=== PATIENT | female | born 1970 | race Two or more races ===

== ENCOUNTER 2016-09-25 16:30 | Emergency (ER) | payer MEDICAID ==
[2016-09-25 16:42] VITALS: PULSE 88; TEMP 98.4
[2016-09-25] MEDS ORDERED: NS 1,000 ML IV ONE (17:00)
[2016-09-25] MEDS ORDERED: HYDROmorphONE/DILAUDID 1 MG/ML SYR IVP ONE ×2 (17:00→17:50)
[2016-09-25] MEDS ORDERED: ONDANSETRON 4 MG/2 ML VIAL IVP ONE (17:00)
--- NOTE | 2016-09-25 17:00 | EDPHY ---
H & P Stated Complaint: abd pain Source: Patient Exam Limitations: No limitations - Personal History LMP (Females 10-55): Irregular Current Tetanus/Diphtheria Vaccine: Yes Current Tetanus Diphtheria and Acellular Pertussis (TDAP): Yes Tetanus Vaccine Date: 2007 - Medical/Surgical History Hx Asthma: Yes Hx Chronic Respiratory Disease: Yes Hx Diabetes: Yes Hx Cardiac Disease: No Hx Renal Disease: No Hx Cirrhosis: No Hx Alcoholism: No Hx HIV/AIDS: No Hx Splenectomy or Spleen Trauma: Yes Other PMH: asthma, COPD, Splenectomy, appy, cholecystectomy,c section, DVTs, PEs , NIDDM, "bladder, uterus, rectum lifted", diabetes, fibromyalgia, rheumatoid arthritis - Family History Significant Family History: No pertinent family hx - Social History Smoking Status: Current some day smoker Time Seen by Provider: 09/25/16 16:50 HPI/ROS: CHIEF COMPLAINT: abdominal pain, nausea, vomiting and diarrhea HISTORY OF PRESENT ILLNESS: 45-year-old female who is an insulin-dependent diabetic presents emergency department complaining of 4 days abdominal pain, nausea, vomiting and diarrhea. Patient states that she was seen by a doctor at [facility] who told her to come to the emergency department to make sure her pancreas was okay. Patient stays at the [facility], she reports she has been eating pasta every day for the last 7 days which upsets her stomach. Abdominal pain is worse after eating. She reports it is worse in her epigastric area and diffusely through her entire abdomen. She denies urinary urgency, frequency or dysuria. Pain is intermittent. Patient denies alcohol use, no drug use. She denies blood in her stool or vomit. REVIEW OF SYSTEMS: A comprehensive 10 point review of systems is otherwise negative aside from elements mentioned in the history of present illness. (Francisca Vu) - Physical Exam Exam: Physical Exam Gen: Alert and Oriented, grimacing HEENT: PERRL, moist mucous membranes NECK: no meningismus CV: regular rate and regular rhythm PULM: CTAB, no wheezes ABDOMEN: Obese, soft, diffusely tender to palpation, BS present BACK: No CVA tenderness NEURO: Neurologically grossly intact EXTREMITIES: normal appearing SKIN: no rash or break in skin on exposed skin PSYCH: answers questions appropriately. (Francisca Vu) Constitutional: Initial Vital Signs Temperature (C) 36.9 C 09/25/16 16:37 Heart Rate 88 09/25/16 16:37 Respiratory Rate 16 09/25/16 16:37 Blood Pressure 118/70 09/25/16 16:37 O2 Sat (%) 98 09/25/16 16:37 O2 Delivery Mode Room Air O2 (L/minute) 4 Allergies/Adverse Reactions: aspirin Allergy (Verified 09/25/16 16:35) azithromycin [From Zithromax] Allergy (Verified 09/25/16 16:35) cephalexin monohydrate [From Keflex] Allergy (Verified 09/25/16 16:35) clindamycin Allergy (Verified 09/25/16 16:35) metformin Allergy (Verified 09/25/16 16:35) NSAIDS (Non-Steroidal Anti-Inflamma Allergy (Verified 09/25/16 16:35) tramadol Allergy (Verified 09/25/16 16:35) all cillins Allergy (Uncoded 10/31/15 07:42) MONOHYDRATE Allergy (Uncoded 02/15/16 12:44) Home Medications: Medication Instructions Recorded Insulin Detemir [Levemir] 50 unit SQ DAILY 08/14/15 Potassium Cl [Klor-Con 20 meq (*)] 40 meq PO BID 08/14/15 tiZANidine HCL [Zanaflex 2MG (*)] 4 mg PO BID 08/14/15 Albuterol [Proventil Inhaler HFA 1 - 2 puffs IH DAILY PRN 11/22/15 (*)] Warfarin Sodium [Coumadin 5MG (*)] 5 mg PO SUMOTUWETHSA@16 11/22/15 Ergocalciferol [Vitamin D2 (*)] 50,000 unit PO ISBELL@0900 12/19/15 Folic Acid [Folic Acid 1 MG (*)] 1 mg PO HS 12/19/15 Warfarin Sodium [Coumadin 7.5MG 7.5 mg PO FR@16 12/19/15 (*)] Insulin Detemir [Levemir] 35 - 50 unit SQ DAILY@18 02/15/16 Promethazine HCl [Phenergan 25mg 25 - 50 mg PO Q4-6PRN PRN 02/15/16 (*)] glipiZIDE [Glipizide] 10 mg PO BIDAC 04/01/16 Sennosides/Docusate Sodium 1 - 2 tab PO BID #0 tab 04/03/16 [Senokot-S] Furosemide [Lasix 40 MG (*)] 40 mg PO BID 04/06/16 Lipase/Protease/Amylase [Creon 12 1 cap PO TIDMEAL #0 cap 04/07/16 (*)] Lisinopril [Zestril 5 mg (*)] 5 mg PO HS #30 tab 04/07/16 Hydrocodone/APAP 5/325 [[place] 1 - 2 tab PO Q4H PRN #10 tab 07/29/16 5/325] Sulfamethox/Tmp 800/160 mg 1 tab PO BID@1000,2200 #14 tab 07/29/16 [Bactrim Ds] methylPREDNISolone [Medrol Dose 4 mg PO DAILY #1 ea 08/03/16 Dash] oxyCODONE/APAP 5/325 [Percocet 1 tab PO QID PRN #14 tab 08/03/16 5/325 (*)] Ondansetron Odt [Zofran Odt] 4 mg PO Q4PRN PRN #20 tab 08/12/16 Ondansetron Odt [Zofran Odt] 4 mg PO Q6-8PRN PRN #8 tab 09/25/16 Medical Decision Making - Diagnostics Imaging: CT abdomen pelvis with IV contrast- Impressions 1. Previous splenectomy, cholecystectomy, and appendectomy. 2. No bowel obstruction, pneumoperitoneum, focal fluid collection, or acute diverticulitis. 3. Constipation. 4. No peripancreatic fluid or ductal dilation. 5. Atherosclerotic aorta, without aneurysm. Findings and recommendations discussed with Emergency Department physician, Francisca Vu, N.P., at 1750 hours, on September 25, 2016. Final report concurs with initial preliminary interpretation. E:amm Dictated By: Jonathan Hunter (Francisca Vu) ED Course/Re-evaluation: IV established, CBC, chemistry panel, LFTs, lipase, urinalysis obtained. Patient was given 1 mg of IV Dilaudid and 4 mg of Zofran for pain and nausea. CT abdomen pelvis has been ordered. Patient required another 0.5 mg of Dilaudid for her pain. Patient's blood work is unremarkable, normal lipase, normal LFTs. Patient is an insulin-dependent diabetic, she has no anion gap, bicarb is 29. She has no evidence of diabetic ketoacidosis. She has had no vomiting in the emergency department, CT abdomen pelvis is unremarkable aside for constipation. Patient will be discharged home with a diagnosis of a gastroenteritis in constipation, I have recommended clear liquids for the next 24 hours and then advance her diet slowly as tolerated with bland foods. I have recommended MiraLax daily. Patient is discharged home with a prescription for Zofran. She agrees to follow up at [facility] this week and is to return to the emergency department for worsening symptoms, new symptoms or concerns. (Francisca Vu) Differential Diagnosis: Diagnosis considered but not limited to diverticulitis, adhesions, bowel obstruction, gastroenteritis, diabetic ketoacidosis (Francisca Vu) Other Provider: The patient wasevaluatedand managed by themidlevel provider. My co- signature indicates that Marin reviewed this chart and I agree with the findings and plan of care asdocumented. I am the secondary supervising physician. (Desiree Luna) - Data Points Laboratory Results: Laboratory Results 09/25/16 16:52 09/25/16 16:52 Microbiology Results: MICROBIOLOGY 09/25/16 17:18 Urine,Clean Catch Urine Culture - Final Five Or More [place] Types Medications Given: Discontinued Medications Hydromorphone HCl (Dilaudid) 1 mg IVP EDNOW ONE Stop: 09/25/16 17:01 Last Admin: 09/25/16 17:15 Dose: 1 mg Hydromorphone HCl (Dilaudid) 0.5 mg IVP EDNOW ONE Stop: 09/25/16 17:51 Last Admin: 09/25/16 17:59 Dose: 0.5 mg Sodium Chloride (Ns) 1,000 mls @ 0 mls/hr IV ONCE ONE PRN Reason: Wide Open Stop: 09/25/16 17:01 Last Admin: 09/25/16 17:15 Dose: 1,000 mls Ondansetron HCl (Zofran) 4 mg IVP EDNOW ONE Stop: 09/25/16 17:01 Last Admin: 09/25/16 17:15 Dose: 4 mg Departure - Departure Disposition: Home, Routine, Self-Care Clinical Impression: Acute gastroenteritis, Constipation Condition: Good Instructions: Gastroenteritis (ED), Constipation (ED), High Fiber Diet (ED) Additional Instructions: Drink clear liquids only then advance her diet slowly as tolerated with bland foods. Start taking MiraLax daily for 7 days. Take Zofran as needed for nausea. Follow up at [facility] this week for re-evaluation. Return to the emergency department for worsening symptoms. Referrals: Mary Rosario MD [Primary Care Provider] - As per Instructions Prescriptions: Ondansetron Odt [Zofran Odt] 4 mg PO Q6-8PRN PRN #8 tab PRN Reason: Nausea/Vomiting, Can'T Take Po
[2016-09-25 17:08] LABS: COLOR YELLOW; LEUKOCYTE ESTERASE,URINE NEGATIVE (NEGATIVE); NITRITE,URINE NEGATIVE (NEGATIVE)
[2016-09-25 17:14] LABS: % IMMATURE GRANULYOCYTES 0.4 % (0.0-1.1); ABSOLUTE IMMATURE GRANULOCYTES 0.04 10^3/uL (0.00-0.10); ABSOLUTE NRBC COUNT 0.59 10^3/uL (0-0.01); ADD DIFF? NO; ADD MORPH? YES; ADD SCAN? NO; ATYPICAL LYMPHOCYTE FLAG 0 (0-99); FRAGMENT RBC FLAG 20 (0-99); HEMATOCRIT 31.5 % (38.0-47.0); HEMOGLOBIN 10.6 g/dL (12.6-16.3); LEFT SHIFT FLG 0 (0-99); LIPEMIA HEMOLYSIS FLAG 80 (0-99); MEAN CELL HEMOGLOBIN 23.5 pg (27.9-34.1); MEAN CELL HEMOGLOBIN CONCENTR. 33.7 g/dL (32.4-36.7); MEAN PLATELET VOLUME 10.1 fL (8.7-11.7); PLATELET CLUMPS FLAG 0 (0-99); PLATELET COUNT 437 10^3/uL (150-400); RED BLOOD CELL COUNT 4.51 10^6/uL (4.18-5.33); RED CELL DISTRIBUTION WIDTH 18.3 % (11.5-15.2)
[2016-09-25 17:17] LABS: MEAN CELL VOLUME 69.8 fL (81.5-99.8); NRBC-AUTO% 6.5 % (0.0-0.2)
[2016-09-25 17:17] LABS: BACTERIA 1+ /hpf (NONE SEEN)
[2016-09-25 17:18] LABS: WBC,URINE NONE SEEN /hpf (0-3)
[2016-09-25 17:22] LABS: ALANINE AMINOTRANSFERASE 32 IU/L (9-52); ALKALINE PHOSPHATASE 101 IU/L (38-126); ANION GAP 7 mEq/L (8-16); ASPARTATE AMINOTRANSFERASE 32 IU/L (14-46); BILIRUBIN,TOTAL 0.7 mg/dL (0.1-1.4); BILIRUBIN-CONJUGATED 0.5 mg/dL (0.0-0.5); BILIRUBIN-UNCONJUGATED 0.2 mg/dL (0.0-1.1); CARBON DIOXIDE 29 mEq/l (22-31); CHLORIDE 102 mEq/L (97-110); GLOMERULAR FILTRATION RATE > 60; GLUCOSE 144 mg/dL (70-100); POTASSIUM 4.4 mEq/L (3.5-5.2); SODIUM 138 mEq/L (134-144); TOTAL PROTEIN 7.4 g/dL (6.3-8.2)
[2016-09-25] MEDS ORDERED: IOPAMIDOL (ISOVUE-300) 100 ML BTL IV ONE (17:28)
[2016-09-25 17:54] LABS: MICROCYTES 2+; TARGET CELLS 3+
[2016-09-25 17:55] LABS: PLATELET ESTIMATE ADEQUATE (ADEQ)
--- NOTE | 2016-09-25 18:08 | CT ---
CT Scan of the Abdomen and Pelvis (With Contrast) at 1738 hours History: Left upper quadrant abdominal pain. Prior splenectomy, cholecystectomy, and appendectomy. Technique: Axial computed tomographic images of the abdomen and pelvis were obtained, with the uneve ntful intravenous administration of 93 mL Isovue-300 contrast. No oral or rectal contrast, which levy its the study. Dose reduction techniques were utilized. Comparison: CT March 2016. CT Abdomen Findings: Lung bases: No pleural effusion. Liver: Normal. Biliary system: Prior cholecystectomy, without biliary ductal dilation. Spleen: Prior splenectomy, with surgical clips left upper quadrant. No left upper quadrant fluid co llections or pneumoperitoneum. Pancreas: Normal. Adrenals: Normal. Kidneys: No obstruction or solid masses. Abdominal Aorta: Mild atherosclerotic abdominal aorta, without aneurysm. Moderate stool throughout the colon consistent with constipation. No evidence of diverticulitis, sma ll bowel obstruction, focal abscesses, focal fluid collection, or pneumoperitoneum. Mesenteric stran ding in the retroperitoneum, right upper quadrant, and right paracolic gutter. Less prominent on pre vious study but chronic. No focal inflammatory acute process or fluid collection noted. A few small retroperitoneal lymph nodes, stable since the previous study. CT Pelvis Findings: No diverticulitis. No adnexal masses. No significant adenopathy. Impressions 1. Previous splenectomy, cholecystectomy, and appendectomy. 2. No bowel obstruction, pneumoperitoneum, focal fluid collection, or acute diverticulitis. 3. Constipation. 4. No peripancreatic fluid or ductal dilation. 5. Atherosclerotic aorta, without aneurysm. Findings and recommendations discussed with Emergency Department physician, Letty Hayward.Elian., at 1 750 hours, on September 25, 2016. Final report concurs with initial preliminary interpretation. E:altaf
[2016-09-25 18:44] VITALS: BP 128/79; RESP 14; O2SAT 96
== END 2016-09-25 18:44 | disposition home or self-care (01) ==
DX: K52.9 Noninfective gastroenteritis and colitis, unspecified (principal); K59.00 Constipation, unspecified; J44.9 Chronic obstructive pulmonary disease, unspecified; E11.9 Type 2 diabetes mellitus without complications; F17.200 Nicotine dependence, unspecified, uncomplicated; Z90.49 Acquired absence of other specified parts of digestive tract; Z79.4 Long term (current) use of insulin; Z79.01 Long term (current) use of anticoagulants
CPT/HCPCS: 96374; J1170; J2405; Q9967

== ENCOUNTER 2016-10-22 15:27 | Emergency (ER) | payer MEDICAID ==
--- NOTE | 2016-10-22 15:55 | EDPHY ---
H & P Stated Complaint: sinus pain/pressure/eues burning Time Seen by Provider: 10/22/16 15:44 HPI/ROS: CHIEF COMPLAINT: cough, sore throat HISTORY OF PRESENT ILLNESS: The patient is a 45-year-old female who [facility] from the [facility] complaining of a cough that she thinks she got from her roommates. She has a history of COPD and wears oxygen of 4 L at baseline. She also has a history of diabetes, PE on Coumadin, portal vein thrombosis, chronic pancreatitis, opiate abuse. She states that she is coughing up green sputum. She has not had a fever. She denies abdominal pain. She denies chest pain. REVIEW OF SYSTEMS: Constitutional: denies: chills, fever, recent illness, recent injury EENTM: denies: blurred vision, double vision, nose congestion Respiratory: See HPI Cardiac: denies: chest pain, irregular heart rate, lightheadedness, palpitations Gastrointestinal/Abdominal: denies: abdominal pain, diarrhea, nausea, vomiting, blood streaked stools Genitourinary: denies: dysuria, frequency, hematuria, pain Musculoskeletal: denies: joint pain, muscle pain Skin: denies: lesions, rash, jaundice, bruising Neurological: denies: headache, numbness, paresthesia, tingling, dizziness, weakness Hematologic/Lymphatic: denies: blood clots, easy bleeding, easy bruising Immunologic/allergic: denies: HIV/AIDS, transplant EXAM: GENERAL: Well-appearing, well-nourished and in no acute distress. HEAD: Atraumatic, normocephalic. EYES: Pupils equal round and reactive to light, extraocular movements intact, sclera anicteric, conjunctiva are normal. ENT: TMs normal, nares patent, oropharynx clear without exudates. Moist mucous membranes. NECK: Normal range of motion, supple without lymphadenopathy or JVD. LUNGS: Breath sounds clear to auscultation bilaterally and equal. No wheezes rales or rhonchi. HEART: Regular rate and rhythm without murmurs, rubs or gallops. ABDOMEN: Soft, nontender, normoactive bowel sounds. No guarding, no rebound. No masses appreciated. BACK: No CVA tenderness, no spinal tenderness, step-offs or deformities EXTREMITIES: Normal range of motion, no pitting or edema. No clubbing or cyanosis. NEUROLOGICAL: Cranial nerves II through XII grossly intact. Normal speech, normal gait. 5/5 strength, normal movement in all extremities, normal sensation PSYCH: Normal mood, normal affect. SKIN: Warm, dry, normal turgor, no visible rashes or lesions. Source: Patient Exam Limitations: No limitations - Personal History LMP (Females 10-55): 8-14 Days Ago Current Tetanus/Diphtheria Vaccine: Yes Tetanus Vaccine Date: 2007 - Medical/Surgical History Hx Asthma: Yes Hx Chronic Respiratory Disease: Yes Hx Diabetes: Yes Hx Cardiac Disease: No Hx Renal Disease: No Hx Cirrhosis: No Hx Alcoholism: No Hx HIV/AIDS: No Hx Splenectomy or Spleen Trauma: Yes Other PMH: Portal vein thrombosis, diabetes, asthma, COPD, Splenectomy, appy, cholecystectomy,c section, DVTs, PEs, NIDDM, "bladder, uterus, rectum lifted", fibromyalgia, rheumatoid arthritis - Family History Significant Family History: Hypertension - Social History Smoking Status: Current some day smoker Alcohol Use: Sober Drug Use: None Constitutional: Initial Vital Signs Temperature (C) 36.8 C 10/22/16 15:35 Heart Rate 90 10/22/16 15:35 Respiratory Rate 16 10/22/16 15:35 Blood Pressure 113/77 10/22/16 15:35 O2 Sat (%) 96 10/22/16 15:35 O2 Delivery Mode Nasal Cannula O2 (L/minute) 2 Allergies/Adverse Reactions: aspirin Allergy (Verified 10/22/16 15:34) azithromycin [From Zithromax] Allergy (Verified 10/22/16 15:34) cephalexin monohydrate [From Keflex] Allergy (Verified 10/22/16 15:34) clindamycin Allergy (Verified 10/22/16 15:34) metformin Allergy (Verified 10/22/16 15:34) NSAIDS (Non-Steroidal Anti-Inflamma Allergy (Verified 10/22/16 15:34) tramadol Allergy (Verified 10/22/16 15:34) all cillins Allergy (Uncoded 10/31/15 07:42) MONOHYDRATE Allergy (Uncoded 02/15/16 12:44) Home Medications: Medication Instructions Recorded Insulin Detemir [Levemir] 50 unit SQ DAILY 08/14/15 Potassium Cl [Klor-Con 20 meq (*)] 40 meq PO BID 08/14/15 tiZANidine HCL [Zanaflex 2MG (*)] 4 mg PO BID 08/14/15 Albuterol [Proventil Inhaler HFA 1 - 2 puffs IH DAILY PRN 11/22/15 (*)] Warfarin Sodium [Coumadin 5MG (*)] 5 mg PO SUMOTUWETHSA@16 11/22/15 Ergocalciferol [Vitamin D2 (*)] 50,000 unit PO ISBELL@0900 12/19/15 Folic Acid [Folic Acid 1 MG (*)] 1 mg PO HS 12/19/15 Warfarin Sodium [Coumadin 7.5MG 7.5 mg PO FR@16 12/19/15 (*)] Insulin Detemir [Levemir] 35 - 50 unit SQ DAILY@18 02/15/16 Promethazine HCl [Phenergan 25mg 25 - 50 mg PO Q4-6PRN PRN 02/15/16 (*)] glipiZIDE [Glipizide] 10 mg PO BIDAC 04/01/16 Sennosides/Docusate Sodium 1 - 2 tab PO BID #0 tab 04/03/16 [Senokot-S] Furosemide [Lasix 40 MG (*)] 40 mg PO BID 04/06/16 Lipase/Protease/Amylase [Creon 12 1 cap PO TIDMEAL #0 cap 04/07/16 (*)] Lisinopril [Zestril 5 mg (*)] 5 mg PO HS #30 tab 04/07/16 Hydrocodone/APAP 5/325 [[place] 1 - 2 tab PO Q4H PRN #10 tab 07/29/16 5/325] Sulfamethox/Tmp 800/160 mg 1 tab PO BID@1000,2200 #14 tab 07/29/16 [Bactrim Ds] methylPREDNISolone [Medrol Dose 4 mg PO DAILY #1 ea 08/03/16 Dash] oxyCODONE/APAP 5/325 [Percocet 1 tab PO QID PRN #14 tab 08/03/16 5/325 (*)] Ondansetron Odt [Zofran Odt] 4 mg PO Q4PRN PRN #20 tab 08/12/16 Ondansetron Odt [Zofran Odt] 4 mg PO Q6-8PRN PRN #8 tab 01/31/17 Albuterol [Proventil Inhaler] 1 - 2 puffs IH Q4H #1 mdi 10/22/16 levOFLOXACIN [levAQUIN] 750 mg PO DAILY #10 tab 10/22/16 predniSONE 60 mg PO DAILY #15 tab 10/22/16 Medical Decision Making - Diagnostics Imaging: X-ray: [chest x-ray ] was obtained. I viewed the images myself on the PACS system. My interpretation of the images is: Bronchitis versus early pneumonia. The radiologist interpretation is early left lower lobe infiltrate. ED Course/Re-evaluation: The patient's x-ray is consistent with bronchitis. She states that she is allergic to azithromycin and has been treated with Bactrim before. I will start her on Levaquin. Discussed the warnings. She has medicated states that she does not have difficulty feeling prescriptions. I will also give her a burst of steroids. Her x-ray read is possibly early lower lobe pneumonia. Patient is not ill-appearing and is saturating 98% on her baseline 4 L. she would like to try outpatient therapy and I agree that this is indicated. We discussed strict return precautions. Vital signs are stable. She is afebrile. Differential Diagnosis: Partial list of the Differential diagnosis considered include but were not limited to; pneumonia, bronchitis, COPD, influenza, strep throat and although unlikely based on the history and physical exam, I also considered sepsis, meningitis. I discussed these differential diagnoses and the plan with the patient as well as the usual and expected course. The patient understands that the diagnosis is provisional and that in medicine we are not always correct and that further workup is often warranted. Usual and customary warnings were given. All of the patient's questions were answered. The patient was instructed to return to the emergency department should the symptoms at all worsen or return, otherwise to followup with the physician as we discussed. - Data Points Laboratory Results: 10/22/16 10/22/16 10/22/16 Unknown 16:00 16:00 Influenza Typ A,B (DFA) NEGATIVE FOR FLU (NEGATIVE) Group A Strep Screen NEGATIVE (NEGATIVE) Group A Strep DNA Pending Medications Given: Discontinued Medications Albuterol/Ipratropium (Duoneb) 3 ml IH EDNOW ONE Stop: 10/22/16 16:58 Last Admin: 10/22/16 17:00 Dose: 3 ml Levofloxacin (Levaquin) 750 mg PO EDNOW ONE PRN Reason: Protocol Stop: 10/22/16 16:58 Last Admin: 10/22/16 17:00 Dose: 750 mg Prednisone (Prednisone) 60 mg PO EDNOW ONE Stop: 10/22/16 16:58 Last Admin: 10/22/16 17:00 Dose: 60 mg Departure - Departure Disposition: Home, Routine, Self-Care Clinical Impression: COPD (chronic obstructive pulmonary disease) Qualifiers: COPD type: chronic bronchitis Chronic bronchitis type: unspecified Qualified Code(s): J42 - Unspecified chronic bronchitis Pneumonia Qualifiers: Pneumonia type: due to unspecified organism Laterality: left Lung location: lower lobe of lung Qualified Code(s): J18.1 - Lobar pneumonia, unspecified organism Condition: Fair Instructions: COPD (Chronic Obstructive Pulmonary Disease) (ED), Community Acquired Pneumonia (ED) Referrals: Mary Rosario MD [Primary Care Provider] - As per Instructions Prescriptions: Albuterol [Proventil Inhaler] 1 - 2 puffs IH Q4H #1 mdi levOFLOXACIN [levAQUIN] 750 mg PO DAILY #10 tab predniSONE 60 mg PO DAILY #15 tab
[2016-10-22] MEDS ORDERED: IPRATROPIUM/ALBUTEROL 3 ML DEYVIAL IH ONE (16:57)
[2016-10-22] MEDS ORDERED: predniSONE 20 MG TAB PO ONE (16:57)
[2016-10-22 17:19] VITALS: BP 112/82; PULSE 89; RESP 18; TEMP 96.8; O2SAT 98
== END 2016-10-22 17:19 | disposition home or self-care (01) ==
DX: J42 Unspecified chronic bronchitis (principal); J18.1 Lobar pneumonia, unspecified organism; F17.200 Nicotine dependence, unspecified, uncomplicated; E11.9 Type 2 diabetes mellitus without complications; Z79.01 Long term (current) use of anticoagulants; Z79.4 Long term (current) use of insulin

== ENCOUNTER 2016-11-10 10:35 | Emergency (ER) | payer MEDICAID ==
[2016-11-10 11:06] LABS: COLOR PALE YELLOW
[2016-11-10 11:07] LABS: LEUKOCYTE ESTERASE,URINE NEGATIVE (NEGATIVE); NITRITE,URINE NEGATIVE (NEGATIVE)
[2016-11-10 11:11] LABS: BACTERIA TRACE /hpf (NONE SEEN); MUCUS TRACE /lpf (NONE-1+)
--- NOTE | 2016-11-10 11:21 | EDPHY ---
H & P Time Seen by Provider: 11/10/16 11:00 HPI/ROS: CHIEF COMPLAINT: Dysuria, ongoing cough HISTORY OF PRESENT ILLNESS: 45-year-old homeless female presents to the emergency department complaining of 2 day history of dysuria. Patient denies urgency or frequency with urination. She has had bladder infections in the past. She was recently treated with antibiotics which she has completed after she was diagnosed with pneumonia in [place]. She has a history of chronic asthma and is on continuous oxygen for the last 3 or 4 years. She denies fevers or chills. She states that she is homeless and so she has not been sleeping well. She denies chest pain or difficulty breathing. Denies abdominal pain. Denies low back pain. Denies fevers or chills. REVIEW OF SYSTEMS: Constitutional: No fever, no chills. Eyes: No double or blurry vision. ENT: No sore throat. Respiratory: Cough. No shortness of breath Cardiac: No chest pain. Gastrointestinal: No abdominal pain, vomiting or diarrhea. Genitourinary: dysuria. Musculoskeletal: No neck or back pain. Skin: No rashes. Neurological: No headache. Past Medical/Surgical History: Asthma, portal vein thrombosis, diabetes, COPD, splenectomy, appendectomy, cholecystectomy, , DVTs, PEs, fibromyalgia, rheumatoid arthritis Social History: Single, homeless Smoking Status: Current some day smoker Physical Exam: General Appearance: Alert, no distress. 37.0, heart rate 92, blood pressure 112 /77, 92% on room air Eyes: Pupils equal and round. Extraocular motions are all intact. ENT: Mouth: Mucous membranes moist. Respiratory: No wheezing, rhonchi, or rales, lungs are clear to auscultation. Cardiovascular: Regular rate and rhythm. Gastrointestinal: Abdomen is soft and nontender, no masses, no rebound or guarding, bowel sounds normal. No CVA tenderness bilaterally. Neurological: Alert and oriented x 3, cranial nerves II through XII grossly intact Skin: Warm and dry, no rashes. Musculoskeletal: Nontender to palpate along the cervical, thoracic or lumbar spine. Neck is supple. Extremities: Full range of motion and no peripheral edema. Psychiatric: Patient is oriented X 3, there is no agitation. Constitutional: Initial Vital Signs Temperature (C) 37 C 11/10/16 10:35 Heart Rate 92 11/10/16 10:35 Respiratory Rate 18 11/10/16 10:35 Blood Pressure 112/77 11/10/16 10:35 O2 Sat (%) 92 11/10/16 10:35 O2 Delivery Mode Room Air O2 (L/minute) 4 Allergies/Adverse Reactions: aspirin Allergy (Verified 10/22/16 15:34) azithromycin [From Zithromax] Allergy (Verified 10/22/16 15:34) cephalexin monohydrate [From Keflex] Allergy (Verified 10/22/16 15:34) clindamycin Allergy (Verified 10/22/16 15:34) metformin Allergy (Verified 10/22/16 15:34) NSAIDS (Non-Steroidal Anti-Inflamma Allergy (Verified 10/22/16 15:34) tramadol Allergy (Verified 10/22/16 15:34) all cillins Allergy (Uncoded 10/31/15 07:42) MONOHYDRATE Allergy (Uncoded 02/15/16 12:44) Home Medications: Medication Instructions Recorded Insulin Detemir [Levemir] 50 unit SQ DAILY 08/14/15 Potassium Cl [Klor-Con 20 meq (*)] 40 meq PO BID 08/14/15 tiZANidine HCL [Zanaflex 2MG (*)] 4 mg PO BID 08/14/15 Albuterol [Proventil Inhaler HFA 1 - 2 puffs IH DAILY PRN 11/22/15 (*)] Warfarin Sodium [Coumadin 5MG (*)] 5 mg PO SUMOTUWETHSA@16 11/22/15 Ergocalciferol [Vitamin D2 (*)] 50,000 unit PO ISBELL@0900 12/19/15 Folic Acid [Folic Acid 1 MG (*)] 1 mg PO HS 12/19/15 Warfarin Sodium [Coumadin 7.5MG 7.5 mg PO FR@16 12/19/15 (*)] Insulin Detemir [Levemir] 35 - 50 unit SQ DAILY@18 02/15/16 Promethazine HCl [Phenergan 25mg 25 - 50 mg PO Q4-6PRN PRN 02/15/16 (*)] glipiZIDE [Glipizide] 10 mg PO BIDAC 04/01/16 Sennosides/Docusate Sodium 1 - 2 tab PO BID #0 tab 04/03/16 [Senokot-S] Furosemide [Lasix 40 MG (*)] 40 mg PO BID 04/06/16 Lipase/Protease/Amylase [Creon 12 1 cap PO TIDMEAL #0 cap 04/07/16 (*)] Lisinopril [Zestril 5 mg (*)] 5 mg PO HS #30 tab 04/07/16 Hydrocodone/APAP 5/325 [[place] 1 - 2 tab PO Q4H PRN #10 tab 07/29/16 5/325] Sulfamethox/Tmp 800/160 mg 1 tab PO BID@1000,2200 #14 tab 07/29/16 [Bactrim Ds] methylPREDNISolone [Medrol Dose 4 mg PO DAILY #1 ea 08/03/16 Dash] oxyCODONE/APAP 5/325 [Percocet 1 tab PO QID PRN #14 tab 08/03/16 5/325 (*)] Ondansetron Odt [Zofran Odt] 4 mg PO Q4PRN PRN #20 tab 08/12/16 Ondansetron Odt [Zofran Odt] 4 mg PO Q6-8PRN PRN #8 tab 09/25/16 Albuterol [Proventil Inhaler] 1 - 2 puffs IH Q4H #1 mdi 10/22/16 levOFLOXACIN [levAQUIN] 750 mg PO DAILY #10 tab 10/22/16 predniSONE 60 mg PO DAILY #15 tab 10/22/16 Medical Decision Making ED Course/Re-evaluation: 45-year-old homeless female presents to the emergency department with dysuria. Urinalysis reveals no signs of infection however 3+ glucose was noted in her urine. Basic chemistry was ordered and patient had a blood sugar of 461. Her potassium and CO2 were normal however. Patient tells me that she saw her primary care provider and is supposed to start insulin. 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 I encouraged her to start her insulin as instructed and to follow up with her primary care provider on Saturday to recheck. I do not think antibiotics are indicated. Patient verbalized understanding and agreed. Differential Diagnosis: Including but not limited to urinary tract infection, pyelonephritis, diabetic ketoacidosis, dehydration, diabetic noncompliance - Data Points Laboratory Results: Laboratory Results 11/10/16 11:40 11/10/16 11/10/16 11:40 10:38 Sodium 137 mEq/L mEq/L (134-144) Potassium 4.3 mEq/L mEq/L (3.5-5.2) Chloride 97 mEq/L mEq/L (97-110) Carbon Dioxide 31 mEq/l mEq/l (22-31) Anion Gap 9 mEq/L mEq/L (8-16) BUN 17 mg/dL mg/dL (7-23) Creatinine 0.9 mg/dL mg/dL (0.6-1.0) Estimated GFR > 60 Glucose 461 mg/dL H mg/dL (70-100) Calcium 9.7 mg/dL mg/dL (8.5-10.4) Urine Color PALE YELLOW Urine Appearance CLEAR Urine pH 6.0 (5.0-7.5) Ur Specific [place] 1.015 (1.002-1.030) Urine Protein NEGATIVE (NEGATIVE) Urine Ketones NEGATIVE (NEGATIVE) Urine Blood NEGATIVE (NEGATIVE) Urine Nitrate NEGATIVE (NEGATIVE) Urine Bilirubin NEGATIVE (NEGATIVE) Urine Urobilinogen NEGATIVE EU EU (0.2-1.0) Ur Leukocyte Esterase NEGATIVE (NEGATIVE) Urine RBC 1-3 /hpf /hpf (0-3) Urine WBC 1-3 /hpf /hpf (0-3) Ur Epithelial Cells TRACE /lpf /lpf (NONE-1+) Urine Bacteria TRACE /hpf H /hpf (NONE SEEN) Urine Mucus TRACE /lpf /lpf (NONE-1+) Urine Glucose 3+ H (NEGATIVE) Departure - Departure Disposition: Home, Routine, Self-Care Clinical Impression: Diabetes mellitus Qualifiers: Diabetes mellitus type: type 2 Diabetes mellitus complication status: without complication Diabetes mellitus assisted insulin use: without terminal carman use Qualified Code(s): E11.9 - Type 2 diabetes mellitus without complications Condition: Good Instructions: How to Check Your Blood Sugar (ED), Type 2 Diabetes in Adults (ED ) Additional Instructions: [facility] to recheck. You should continue your medications for diabetes and check your blood sugars as instructed. Return to the emergency department if you began vomiting, if you develop fever, or if you feel worse in any way. Continue your oxygen as prescribed. There was no evidence of a urinary tract infection on urinalysis today. Referrals: Mary Rosario MD [Primary Care Provider] - 1-2 days without fail
[2016-11-10 12:19] LABS: ANION GAP 9 mEq/L (8-16); CALCIUM 9.7 mg/dL (8.5-10.4); CARBON DIOXIDE 31 mEq/l (22-31); CHLORIDE 97 mEq/L (97-110); CREATININE 0.9 mg/dL (0.6-1.0); GLOMERULAR FILTRATION RATE > 60; GLUCOSE 461 mg/dL (70-100); POTASSIUM 4.3 mEq/L (3.5-5.2); SODIUM 137 mEq/L (134-144)
[2016-11-10 13:01] VITALS: BP 117/69; PULSE 86; RESP 16; TEMP 97.9; O2SAT 96
== END 2016-11-10 13:04 | disposition home or self-care (01) ==
DX: E11.9 Type 2 diabetes mellitus without complications (principal); J44.9 Chronic obstructive pulmonary disease, unspecified; F17.200 Nicotine dependence, unspecified, uncomplicated; Z79.4 Long term (current) use of insulin; Z79.01 Long term (current) use of anticoagulants

== ENCOUNTER 2016-11-26 10:44 | Emergency (ER) | payer MEDICAID ==
[2016-11-26 10:54] VITALS: RESP 18
[2016-11-26] MEDS ORDERED: ACETAMINOPHEN 500 MG TAB PO ONE (13:16)
--- NOTE | 2016-11-26 13:20 | EDPHY ---
H & P Time Seen by Provider: 11/26/16 11:00 HPI/ROS: This is a 45-year-old female presenting to the emergency department complaining of red eyes dry sinuses body aches and intermittent fever over the past few days. Patient states she is homeless, some of the shelters she has stayed in there have been influenza. Also reports has had intermittent in nosebleeds but have always resolved. Patient does use oxygen on a regular basis either asthma or COPD she is not sure. Denies any chest pain or shortness of breath no other complaints REVIEW OF SYSTEMS: Constitutional: Some intermittent fever no chills, no changes in appetite Eyes: Red eyes with drainage no blurred vision ENT: No sore throat, intermittent in nosebleeds Respiratory: No cough, no shortness of breath Cardiac: No chest pain Gastrointestinal: No nausea vomiting or abdominal pain Musculoskeletal: Intermittent body aches Skin: No rash Neurological: No headache or dizziness Smoking Status: Current some day smoker Physical Exam: CONSTITUTIONAL: patient appeared well nourished, non-ill appearing and normally developed. No acute distress. Vital signs as documented. HEENT: NCAT. PERRLA. EOMI. Dried blood noted in bilateral nares uses oxygen via nasal cannula all the time. Oropharynx normal. TMs bilaterally normal NECK: Supple. FROM without pain RESP: Non-labored resp effort, airway patent, CTAB CARDIAC: RRR w/o murmur, brandi. Normal S1/S2 GI: Abd soft NTTP NEURO: AAOx3, ambulatory without gait disturbance EXTREMITIES: FROM without pain or difficulty. Positive cms intact SKIN: Warm and dry no rash LYMPH: No lymphadenopathy PSYCH: Normal affect, calm, no distress, acting appropriately Constitutional: Initial Vital Signs Temperature (C) 36.9 C 11/26/16 10:50 Heart Rate 99 11/26/16 10:50 Respiratory Rate 18 11/26/16 10:50 Blood Pressure 109/85 H 11/26/16 10:50 O2 Sat (%) 98 11/26/16 10:50 O2 Delivery Mode Nasal Cannula O2 (L/minute) 4 Allergies/Adverse Reactions: aspirin Allergy (Verified 10/22/16 15:34) azithromycin [From Zithromax] Allergy (Verified 10/22/16 15:34) cephalexin monohydrate [From Keflex] Allergy (Verified 10/22/16 15:34) clindamycin Allergy (Verified 10/22/16 15:34) metformin Allergy (Verified 10/22/16 15:34) NSAIDS (Non-Steroidal Anti-Inflamma Allergy (Verified 10/22/16 15:34) tramadol Allergy (Verified 10/22/16 15:34) all cillins Allergy (Uncoded 10/31/15 07:42) MONOHYDRATE Allergy (Uncoded 02/15/16 12:44) Home Medications: Medication Instructions Recorded Insulin Detemir [Levemir] 50 unit SQ DAILY 08/14/15 Potassium Cl [Klor-Con 20 meq (*)] 40 meq PO BID 08/14/15 tiZANidine HCL [Zanaflex 2MG (*)] 4 mg PO BID 08/14/15 Albuterol [Proventil Inhaler HFA 1 - 2 puffs IH DAILY PRN 11/22/15 (*)] Warfarin Sodium [Coumadin 5MG (*)] 5 mg PO SUMOTUWETHSA@16 11/22/15 Ergocalciferol [Vitamin D2 (*)] 50,000 unit PO ISBELL@0900 12/19/15 Folic Acid [Folic Acid 1 MG (*)] 1 mg PO HS 12/19/15 Warfarin Sodium [Coumadin 7.5MG 7.5 mg PO FR@16 12/19/15 (*)] Insulin Detemir [Levemir] 35 - 50 unit SQ DAILY@18 02/15/16 Promethazine HCl [Phenergan 25mg 25 - 50 mg PO Q4-6PRN PRN 02/15/16 (*)] glipiZIDE [Glipizide] 10 mg PO BIDAC 04/01/16 Sennosides/Docusate Sodium 1 - 2 tab PO BID #0 tab 04/03/16 [Senokot-S] Furosemide [Lasix 40 MG (*)] 40 mg PO BID 04/06/16 Lipase/Protease/Amylase [Creon 12 1 cap PO TIDMEAL #0 cap 04/07/16 (*)] Lisinopril [Zestril 5 mg (*)] 5 mg PO HS #30 tab 04/07/16 Hydrocodone/APAP 5/325 [[place] 1 - 2 tab PO Q4H PRN #10 tab 07/29/16 5/325] Sulfamethox/Tmp 800/160 mg 1 tab PO BID@1000,2200 #14 tab 07/29/16 [Bactrim Ds] methylPREDNISolone [Medrol Dose 4 mg PO DAILY #1 ea 08/03/16 Dash] oxyCODONE/APAP 5/325 [Percocet 1 tab PO QID PRN #14 tab 08/03/16 5/325 (*)] Ondansetron Odt [Zofran Odt] 4 mg PO Q4PRN PRN #20 tab 08/12/16 Ondansetron Odt [Zofran Odt] 4 mg PO Q6-8PRN PRN #8 tab 09/25/16 Albuterol [Proventil Inhaler] 1 - 2 puffs IH Q4H #1 mdi 10/22/16 levOFLOXACIN [levAQUIN] 750 mg PO DAILY #10 tab 10/22/16 predniSONE 60 mg PO DAILY #15 tab 10/22/16 Medical Decision Making ED Course/Re-evaluation: Discussed plan of care: Flu swab was negative, Tylenol given. We also just passed taking allergy medicine, the redness of the eyes are more likely allergy related. Handwashing all the time no rubbing of the eyes. Also recommended saline mist for nares has oxygen can act as a drying agent can increase chances of nosebleeds. Discharge home---> stable, discussed additional discharge instructions Differential Diagnosis: Differential diagnosis considered but not limited to bacterial conjunctivitis, influenza, uncontrolled epistaxis - Data Points Laboratory Results: 11/26/16 11:26 Influenza A & B (PCR) NEGATIVE FOR FLU (NEGATIVE) Departure - Departure Disposition: Home, Routine, Self-Care Clinical Impression: Conjunctivitis, allergic Qualifiers: Laterality: bilateral Qualified Code(s): H10.13 - Acute atopic conjunctivitis, bilateral Condition: Good Instructions: Conjunctivitis (ED), Allergies (ED) Additional Instructions: 1. Take allergy medicine, this can decrease histamine level reduce irritated eyes, watery eyes, and sneezing 2. Use nasal saline mist daily, this can help decrease nasal dryness due to constant oxygen use 3. He can take Tylenol or ibuprofen as needed 4. Follow up with your primary care provider within the next 1-2 weeks Referrals: Mary Rosario MD [Primary Care Provider] - As per Instructions
[2016-11-26 13:38] VITALS: BP 115/79; PULSE 69; TEMP 98.1; O2SAT 97
== END 2016-11-26 13:38 | disposition home or self-care (01) ==
DX: H10.13 Acute atopic conjunctivitis, bilateral (principal); F17.200 Nicotine dependence, unspecified, uncomplicated; Z79.4 Long term (current) use of insulin; Z79.01 Long term (current) use of anticoagulants

== ENCOUNTER 2017-03-01 13:59 | Emergency (ER) | payer MEDICAID ==
[2017-03-01 14:16] VITALS: O2SAT 96
[2017-03-01 16:14] VITALS: BP 111/83; PULSE 101; RESP 18
--- NOTE | 2017-03-01 17:02 | EDPHY ---
H & P Time Seen by Provider: 03/01/17 17:01 HPI/ROS: Chief complaint. Fall HPI. Patient is a 46-year-old female who tripped and fell in her bedroom last night landing on her bottom. She complains of low back pain. She did bump her head but has no bump, did not lose consciousness, does not have headache. She her complaint is low back pain that is worse with movement. No leg symptoms including leg weakness, numbness or tingling, bowel or bladder symptoms. No significant history of low back pain ROS Constitutional. no fever/chills, no weakness Eyes. no problems with vision ENT. no sore throat, no nasal drainage Cardiovascular. no chest pain Respiratory. no shortness of breath, no cough Abdominal. no abdominal pain, no nausea/vomiting, no diarrhea . no problems urinating MS. Low back pain Skin. no rash Lymph. no swollen glands Neuro. no headache, no dizziness, no difficulty walking or with speech Past Medical/Surgical History: Portal vein thrombosis, diabetes, asthma, COPD, splenectomy, appendectomy, cholecystectomy, DVT, PE, fibromyalgia, arthritis Social History: Single, daily smoker, no alcohol Smoking Status: Current every day smoker Physical Exam: General Appearance: Alert well-developed female mild distress vital signs stable Eyes: Pupils equal and round no pallor or injection. ENT, no hemotympanum or Harden sign. No obvious bump to the head. Respiratory: There are no retractions, lungs are clear to auscultation. Cardiovascular: Regular rate and rhythm. Gastrointestinal: Abdomen is soft and nontender, no masses, bowel sounds normal. Neurological: Awake and alert, sensory and motor exams grossly normal. Skin: Warm and dry, no rashes. Musculoskeletal: Neck is supple nontender. Patient is tender over the sacrum. There is no surface trauma. Extremities symmetrical, full range of motion. Psychiatric: Patient is oriented X 3, there is no agitation. Constitutional: Initial Vital Signs Heart Rate 106 H 03/01/17 14:02 Respiratory Rate 22 H 03/01/17 14:02 Blood Pressure 90/60 L 03/01/17 14:02 O2 Sat (%) 96 03/01/17 14:02 O2 Delivery Mode Nasal Cannula O2 (L/minute) 2 Allergies/Adverse Reactions: aspirin Allergy (Verified 03/01/17 14:01) azithromycin [From Zithromax] Allergy (Verified 03/01/17 14:01) cephalexin monohydrate [From Keflex] Allergy (Verified 03/01/17 14:01) clindamycin Allergy (Verified 03/01/17 14:01) metformin Allergy (Verified 03/01/17 14:01) NSAIDS (Non-Steroidal Anti-Inflamma Allergy (Verified 03/01/17 14:01) tramadol Allergy (Verified 03/01/17 14:01) all cillins Allergy (Uncoded 10/31/15 07:42) MONOHYDRATE Allergy (Uncoded 02/15/16 12:44) Home Medications: Medication Instructions Recorded Insulin Detemir [Levemir] 50 unit SQ DAILY 08/14/15 Potassium Cl [Klor-Con 20 meq (*)] 40 meq PO BID 08/14/15 tiZANidine HCL [Zanaflex 2MG (*)] 4 mg PO BID 08/14/15 Albuterol [Proventil Inhaler HFA 1 - 2 puffs IH DAILY PRN 11/22/15 (*)] Warfarin Sodium [Coumadin 5MG (*)] 5 mg PO SUMOTUWETHSA@16 11/22/15 Ergocalciferol [Vitamin D2 (*)] 50,000 unit PO ISBELL@0900 12/19/15 Folic Acid [Folic Acid 1 MG (*)] 1 mg PO HS 12/19/15 Warfarin Sodium [Coumadin 7.5MG 7.5 mg PO FR@16 12/19/15 (*)] Insulin Detemir [Levemir] 35 - 50 unit SQ DAILY@18 02/15/16 Promethazine HCl [Phenergan 25mg 25 - 50 mg PO Q4-6PRN PRN 02/15/16 (*)] glipiZIDE [Glipizide] 10 mg PO BIDAC 04/01/16 Sennosides/Docusate Sodium 1 - 2 tab PO BID #0 tab 04/03/16 [Senokot-S] Furosemide [Lasix 40 MG (*)] 40 mg PO BID 04/06/16 Lipase/Protease/Amylase [Creon 12 1 cap PO TIDMEAL #0 cap 04/07/16 (*)] Lisinopril [Zestril 5 mg (*)] 5 mg PO HS #30 tab 04/07/16 Hydrocodone/APAP 5/325 [[place] 1 - 2 tab PO Q4H PRN #10 tab 07/29/16 5/325] Sulfamethox/Tmp 800/160 mg 1 tab PO BID@1000,2200 #14 tab 07/29/16 [Bactrim Ds] methylPREDNISolone [Medrol Dose 4 mg PO DAILY #1 ea 08/03/16 Dash] Ondansetron Odt [Zofran Odt] 4 mg PO Q4PRN PRN #20 tab 08/12/16 Ondansetron Odt [Zofran Odt] 4 mg PO Q6-8PRN PRN #8 tab 09/25/16 Albuterol [Proventil Inhaler] 1 - 2 puffs IH Q4H #1 mdi 10/22/16 levOFLOXACIN [levAQUIN] 750 mg PO DAILY #10 tab 10/22/16 predniSONE 60 mg PO DAILY #15 tab 10/22/16 Medical Decision Making - Diagnostics Imaging Results: Imaging Impressions Lumbar Spine X-Ray 03/01/17 17:20 Impression: Negative for fracture with mild degenerative changes seen. Sacrum and Coccyx, 3 Views Clinical Indications: Pain following trauma; patient fell last night. Findings: A fracture is not identified. The bones have normal alignment. Soft tissues are unremarkable. Impression: Negative sacrum and coccyx. . Sacrum and Coccyx X-Ray 03/01/17 17:20 Impression: Negative for fracture with mild degenerative changes seen. Sacrum and Coccyx, 3 Views Clinical Indications: Pain following trauma; patient fell last night. Findings: A fracture is not identified. The bones have normal alignment. Soft tissues are unremarkable. Impression: Negative sacrum and coccyx. . X-rays of sacrum and coccyx and lumbar spine reviewed by me show no evidence of fracture or dislocation ED Course/Re-evaluation: Re-evaluation at 6:10 p.m.. The patient and I discussed imaging study results. I suggested and recommended lidocaine patch. She refuses. She tells me she cannot take ibuprofen. I offered and recommended Tylenol however she refuses and begins to curse. I have encouraged her in symptomatic care and importance of follow-up as well as criteria for return. Differential Diagnosis: I considered fracture, dislocation, contusion. It is certainly possible this is drug-seeking behavior as the patient does not want any treatment other than pain medication Departure - Departure Disposition: Home, Routine, Self-Care Clinical Impression: Coccyx contusion Qualifiers: Encounter type: initial encounter Qualified Code(s): S30.0XXA - Contusion of lower back and pelvis, initial encounter Condition: Good Instructions: Contusion in Adults (ED) Additional Instructions: Ice to sore area next 24-48 hours. Tylenol 1000 mg every 6 hours for discomfort. Return for worsening symptoms. Follow up with your regular physician on Saturday as you told me that he was in the office on Saturday. Referrals: NONE *PRIMARY CARE P,. [Primary Care Provider] - As per Instructions
== END 2017-03-01 18:21 | disposition home or self-care (01) ==
DX: S30.0XXA Contusion of lower back and pelvis, initial encounter (principal); J44.9 Chronic obstructive pulmonary disease, unspecified; E11.9 Type 2 diabetes mellitus without complications; F17.200 Nicotine dependence, unspecified, uncomplicated; Z79.4 Long term (current) use of insulin; Z79.01 Long term (current) use of anticoagulants; W01.0XXA Fall on same level from slipping, tripping and stumbling without subsequent striking against object, initial encounter; Y92.003 Bedroom of unspecified non-institutional (private) residence as the place of occurrence of the external cause

== ENCOUNTER 2017-07-12 06:55 | Emergency (ER) | payer MEDICAID ==
[2017-07-12 07:01] VITALS: BP 123/81; PULSE 95; RESP 18; TEMP 98.2; O2SAT 94
--- NOTE | 2017-07-12 07:17 | EDPHY ---
HPI/HX/ROS/PE/MDM Narrative: CHIEF COMPLAINT: Right earache HISTORY OF PRESENT ILLNESS: This patient is a 46 year old female with history of diabetes, asthma, and COPD complaining of right-sided ear pain onset two days ago. She notes increased pain with any pressure applied to the area and with chewing. She feels pain more in her jaw and ear when she chews than in the area of any particular teeth. She woke up at 3:30am this morning with severe tenderness to the right ear. She endorses green discharge from her eyes as well. She has not been feeling well for a few days, and endorses a productive cough with green mucous as well as postnasal drip. No fever, chills, chest pain, shortness of breath, palpitations, vomiting, diarrhea, urinary complaints, headache, lightheadedness. REVIEW OF SYSTEMS: Aside from elements discussed in the HPI, a comprehensive 10-point review of systems was reviewed and is negative. PAST MEDICAL HISTORY: 1. Diabetes mellitus 2. Asthma 3. COPD (O2-dependent) 4. Rheumatoid arthritis 5. Fibromyalgia 6. Splenectomy 7. Appendectomy 8. Cholecystectomy 9. 10. History of DVT, PE SOCIAL HISTORY: Single, lives in [place], current daily smoker VITAL SIGNS: Reviewed by me GENERAL: Well-developed, well-nourished, resting comfortably in no respiratory distress. HEENT: Atraumatic. Ears: Right: Cerumen impaction, discomfort with movement of auricle, EAC tender on examination. Left: Clear. Eyes: Conjunctival injection. No icterus, no discharge. Mouth: moist mucous membranes. No erythema or lesions. No dental caries or gumline swelling. Neck: supple with no adenopathy. LUNGS: Clear to auscultation bilaterally, no wheezes, rhonchi or rales. CARDIAC: Regular rate and rhythm, no rubs, murmurs or gallops. ABDOMEN: Soft, nontender, nondistended, bowel sounds normal. BACK: No CVA tenderness. EXTREMITIES: No trauma. No edema. Range of motion is normal throughout. NEURO: Alert and oriented, grossly nonfocal. SKIN: Warm and dry, no rash. PSYCHIATRIC: Normal mentation, no agitation. Portions of this note were transcribed by a resident medical officer. I personally performed a history, physical exam, medical decision making, and confirmed accuracy of information the transcribed note. ED Course: 46 year old female presents with two day history of right-sided ear pain and associated upper respiratory infection symptoms. She denies fever and is afebrile here in the emergency department. Physical exam reveals cerumen impaction in the right ear with discomfort with movement of auricle. Her external auditory canal is tender on examination. I am unable to fully visualize the TM due to cerumen impaction, but suspect possible otitis media. No dental caries or gumline swelling noted. Lungs are clear to auscultation, but patient endorses productive cough with green-tinged sputum. Plan to discharge home in good condition with Cortisporin ear drops to treat otitis externa, Bactrim to treat productive cough and possible otitis media. I recommended she obtain Debrox solution [id number] to help with earwax removal once she has completed her course of Cortisporin. Further followup and return precautions discussed. The patient is comfortable with this plan. MDM: Differential diagnosis for the patient's primary complaint was considered including but not limited to otitis media, otitis externa, foreign body, perforated tympanic membrane. General Time Seen by Provider: 07/12/17 07:06 Initial Vital Signs: Initial Vital Signs Temperature (C) 36.8 C 07/12/17 06:59 Heart Rate 95 07/12/17 06:59 Respiratory Rate 18 07/12/17 06:59 Blood Pressure 123/81 H 07/12/17 06:59 O2 Sat (%) 94 07/12/17 06:59 O2 Delivery Mode Nasal Cannula O2 (L/minute) 4 Allergies/Adverse Reactions: aspirin Allergy (Verified 07/12/17 07:02) azithromycin [From Zithromax] Allergy (Verified 07/12/17 07:02) cephalexin monohydrate [From Keflex] Allergy (Verified 07/12/17 07:02) clindamycin Allergy (Verified 07/12/17 07:02) metformin Allergy (Verified 07/12/17 07:02) NSAIDS (Non-Steroidal Anti-Inflamma Allergy (Verified 07/12/17 07:02) tramadol Allergy (Verified 07/12/17 07:02) all cillins Allergy (Uncoded 10/31/15 07:42) MONOHYDRATE Allergy (Uncoded 02/15/16 12:44) Home Medications: Medication Instructions Recorded Insulin Detemir [Levemir] 50 unit SQ DAILY 08/14/15 Potassium Cl [Klor-Con 20 meq (*)] 40 meq PO BID 08/14/15 tiZANidine HCL [Zanaflex 2MG (*)] 4 mg PO BID 08/14/15 Albuterol [Proventil Inhaler HFA 1 - 2 puffs IH DAILY PRN 11/22/15 (*)] Warfarin Sodium [Coumadin 5MG (*)] 5 mg PO SUMOTUWETHSA@16 11/22/15 Ergocalciferol [Vitamin D2 (*)] 50,000 unit PO ISBELL@0900 12/19/15 Folic Acid [Folic Acid 1 MG (*)] 1 mg PO HS 12/19/15 Warfarin Sodium [Coumadin 7.5MG 7.5 mg PO FR@16 12/19/15 (*)] Insulin Detemir [Levemir] 35 - 50 unit SQ DAILY@18 02/15/16 Promethazine HCl [Phenergan 25mg 25 - 50 mg PO Q4-6PRN PRN 02/15/16 (*)] glipiZIDE [Glipizide] 10 mg PO BIDAC 04/01/16 Sennosides/Docusate Sodium 1 - 2 tab PO BID #0 tab 04/03/16 [Senokot-S] Furosemide [Lasix 40 MG (*)] 40 mg PO BID 04/06/16 Lipase 12,000/Amylase/Protease 1 cap PO TIDMEAL #0 cap 04/07/16 [Creon 12 (*)] Lisinopril [Zestril 5 mg (*)] 5 mg PO HS #30 tab 04/07/16 Hydrocodone/APAP 5/325 [[place] 1 - 2 tab PO Q4H PRN #10 tab 07/29/16 5/325] Sulfamethox/Tmp 800/160 mg 1 tab PO BID@1000,2200 #14 tab 07/29/16 [Bactrim Ds] methylPREDNISolone [Medrol Dose 4 mg PO DAILY #1 ea 08/03/16 Dash] Ondansetron Odt [Zofran Odt] 4 mg PO Q4PRN PRN #20 tab 08/12/16 Ondansetron Odt [Zofran Odt] 4 mg PO Q6-8PRN PRN #8 tab 09/25/16 Albuterol [Proventil Inhaler] 1 - 2 puffs IH Q4H #1 mdi 10/22/16 levOFLOXACIN [levAQUIN] 750 mg PO DAILY #10 tab 10/22/16 predniSONE 60 mg PO DAILY #15 tab 10/22/16 Neomy Sulf/Polymyx B Sulf/Hc 2 - 4 drops OT TID #1 otic.btl 07/12/17 [Cortisporin Otic Suspension] Sulfamethox/Tmp 800/160 mg 1 tab PO BID #14 tab 07/12/17 [Bactrim Ds] Departure - Departure Disposition: Home, Routine, Self-Care Clinical Impression: Acute upper respiratory infection, Suspect otitis media Otitis externa Qualifiers: Otitis externa type: unspecified type Chronicity: acute Laterality: right Qualified Code(s): H60.501 - Unspecified acute noninfective otitis externa, right ear Condition: Good Instructions: Otitis Externa (ED), Otitis Media (ED), Upper Respiratory Infection (ED) Additional Instructions: 1. Use your Cortisporin ear drops as prescribed. 2. Take Bactrim as prescribed. It is important to finish your entire course of antibiotics, even if you are feeling better. 3. Obtain Debrox solution when you have finished your ear drops to help clear the wax in your ear. 4. Follow up with your primary care physician for continued evaluation and management of symptoms. 5. Return to the emergency department for increased pain or if you develop swelling or discharge from the ear, fever, vomiting, or other worsening of condition. Referrals: UNKNOWN,KATY [Other] - As per Instructions Trey Tan DO [Medical Doctor] - As per Instructions Prescriptions: Neomy Sulf/Polymyx B Sulf/Hc [Cortisporin Otic Suspension] 2 - 4 drops OT TID # 1 otic.btl Sulfamethox/Tmp 800/160 mg [Bactrim Ds] 1 tab PO BID #14 tab Report Scribed for: Desiree Luna Report Scribed by: Isabella Plummer Date of Report: 07/12/17 Time of Report: 07:40
== END 2017-07-12 07:44 | disposition home or self-care (01) ==
DX: H60.501 Unspecified acute noninfective otitis externa, right ear (principal); J06.9 Acute upper respiratory infection, unspecified; E11.9 Type 2 diabetes mellitus without complications; J44.9 Chronic obstructive pulmonary disease, unspecified; F17.200 Nicotine dependence, unspecified, uncomplicated; Z79.01 Long term (current) use of anticoagulants; Z79.4 Long term (current) use of insulin

== ENCOUNTER 2018-03-19 02:09 | Inpatient (IN) | payer MEDICAID ==
[2018-03-19] MEDS ORDERED: NS 1,000 ML IV ONE ×2 (02:15→02:35)
--- NOTE | 2018-03-19 02:19 | EDPHY ---
H & P Time Seen by Provider: 03/19/18 02:17 HPI/ROS: HPI CHIEF COMPLAINT: Right ankle pain status post syncope HISTORY OF PRESENT ILLNESS: 47-year-old female, history of insulin-dependent diabetes, COPD on 4 L nasal cannula and Meniere's disease additionally uses a walker to ambulate states she was sleeping tonight and got up to use the bathroom got dizzy and lightheaded felt like she was going to pass out she rolled her right ankle and now presents emergency room with right ankle pain. She states she thinks she may have had a syncopal episode. She contributes her gait instability due to Meniere's disease. She denies head strike, denies chest pain or shortness of breath, denies headache, denies neck pain, denies focal numbness or tingling. Main complaint right ankle pain 4/10. She is able to bear weight with it. Denies any other areas of injury. EMS reports blood sugar over 500. She did not take her nightly Levemir tonight. Past Medical History: COPD on 4 L nasal cannula, insulin-dependent diabetes, Meniere's disease Past Surgical History: Denies recent surgery Social History: denies daily use of drugs alcohol or tobacco. Family History: Noncontributory ROS REVIEW OF SYSTEMS: A comprehensive 10 point review of systems is otherwise negative aside from elements mentioned in the history of present illness. Exam Constitutional triage nursing summary reviewed, vital signs reviewed, awake/ alert. Eyes normal conjunctivae and sclera, EOMI, PERRLA. HENT normal inspection, atraumatic, moist mucus membranes, no epistaxis, neck supple/ no meningismus, no raccoon eyes. Respiratory clear to auscultation bilaterally, normal breath sounds, no respiratory distress, no wheezing. Cardiovascular rate normal, regular rhythm, no murmur, no edema, distal pulses normal. Gastrointestinal soft, non-tender, no rebound, no guarding, normal bowel sounds, no distension, no pulsatile mass. Genitourinary no CVA tenderness. Musculoskeletal right ankle tender palpation over the medial malleolus and lateral malleolus, however neurovascularly intact, mild swelling noted, good distal pulse, good cap refill, normal flexion extension of the foot. No knee pain. no midline vertebral tenderness, full range of motion, no calf swelling, no tenderness of extremities, no meningismus, good pulses, neurovascularly intact. Skin pink, warm, & dry, no rash, skin atraumatic. Neurologic awake, alert and oriented x 3, AAOx3, moves all 4 extremities equally, motor intact, sensory intact, CN II-XII intact, normal cerebellar, normal vision, normal speech. Psychiatric normal mood/affect. Heme/Lymph/Immune no lymphadenopathy. Differential Diagnosis: Includes but is not limited to in a particular order right ankle sprain, right ankle fracture, DKA, electrolyte disturbance, dehydration, insulin noncompliance, vasovagal syncope, micturition syncope, orthostatic syncope Medical Decision Making: Plan for this patient x-ray right ankle, basic blood work, EKG, troponin, IV fluids, check UA, check blood glucose. And re-evaluate. Re-evaluation: EKG interpretation by me on record in [email or web address] system. Impression time of EKG 2:40 a.m., sinus rhythm rate of 75 no signs of cardiac ischemia no ST elevation no significant ST depression T-wave inversion in lead 3. Otherwise no other signs of acute ischemia. X-ray right ankle reviewed this shows medial malleolus fracture. Joint motor still intact. Patient be placed in a posterior short-leg with stirrup. Final diagnosis right ankle fracture, hyperglycemia, dehydration, UTI. Given the patient's complex medical history which includes obesity, diabetes, hypertension, PEs and her current right ankle fracture, glucose over 500, plan will be for admission to the hospitalist service for management of this. I did consult Orthopedics at 3:[address] And spoke with Dr. Montaño. He will consult on the patient. Source: Patient, EMS - Personal History Tetanus Vaccine Date: 2007 - Medical/Surgical History Hx Asthma: Yes Hx Chronic Respiratory Disease: Yes Hx Diabetes: Yes Hx Cardiac Disease: No Hx Renal Disease: No Hx Cirrhosis: No Hx Alcoholism: No Hx HIV/AIDS: No Hx Splenectomy or Spleen Trauma: Yes Other PMH: Portal vein thrombosis, diabetes, asthma, COPD, Splenectomy, appy, cholecystectomy,c section, DVTs, PEs, NIDDM, "bladder, uterus, rectum lifted", fibromyalgia, rheumatoid arthritis - Social History Smoking Status: Current every day smoker Constitutional: Initial Vital Signs Temperature (C) 36.7 C 03/19/18 02:05 Heart Rate 90 03/19/18 02:05 Respiratory Rate 19 03/19/18 02:05 Blood Pressure 111/75 03/19/18 02:05 O2 Sat (%) 97 03/19/18 02:05 O2 Delivery Mode Nasal Cannula O2 (L/minute) 2 Allergies/Adverse Reactions: aspirin Allergy (Verified 03/19/18 09:20) Swelling/neck,face,throat azithromycin [From Zithromax] Allergy (Verified 03/19/18 09:20) Vomiting cephalexin monohydrate [From Keflex] Allergy (Verified 03/19/18 09:20) Swelling/neck,face,throat clindamycin Allergy (Verified 03/19/18 09:20) Swelling/neck,face,throat metformin Allergy (Verified 03/19/18 09:20) Other-Enter Comments NSAIDS (Non-Steroidal Anti-Inflamma Allergy (Verified 03/19/18 09:20) Swelling/neck,face,throat Penicillins Allergy (Verified 03/19/18 09:27) Rash all cillins Allergy (Uncoded 03/19/18 09:20) Rash MONOHYDRATE Allergy (Uncoded 02/15/16 12:44) Home Medications: Medication Instructions Recorded Insulin Detemir [Levemir] 50 unit SQ DAILY 08/14/15 Potassium Cl [Klor-Con 20 meq (*)] 40 meq PO BID 08/14/15 tiZANidine HCL [Zanaflex 2MG (*)] 4 mg PO BID 08/14/15 Albuterol [Proventil Inhaler HFA 1 - 2 puffs IH DAILY PRN 11/22/15 (*)] Warfarin Sodium [Coumadin 5MG (*)] 5 mg PO HS 11/22/15 Ergocalciferol [Vitamin D2 (*)] 50,000 unit PO ISBELL@0900 12/19/15 Folic Acid [Folic Acid 1 MG (*)] 1 mg PO HS 12/19/15 Insulin Detemir [Levemir] 35 - 50 unit SQ DAILY@18 02/15/16 Promethazine HCl [Phenergan 25mg 25 mg PO Q4-6PRN PRN 02/15/16 (*)] glipiZIDE [Glipizide] 10 mg PO BIDAC 04/01/16 Furosemide [Lasix 40 MG (*)] 40 mg PO BID 04/06/16 Lisinopril [Zestril 5 mg (*)] 5 mg PO HS #30 tab 04/07/16 Lipase 24,000/Amylase/Protease 2 cap PO TIDMEAL 03/19/18 [Creon 24 (*)] Pregabalin [Lyrica 150mg (*)] 150 mg PO BID 03/19/18 Pregabalin [Lyrica 75mg (*)] 75 mg PO BID 03/19/18 tiZANidine HCL [Zanaflex 2MG (*)] 2 mg PO DAILY14 03/19/18 Medical Decision Making - Data Points Laboratory Results: Laboratory Results 03/20/18 04:14 03/20/18 04:14 03/20/18 16:20 POC Glucose 177 mg/dL H mg/dL (70-100) Microbiology Results: MICROBIOLOGY 03/19/18 02:45 Urine,Clean Catch Urine Culture - Preliminary Gram Neg Tray Lactose [employer] Medications Given: Acetaminophen (Tylenol) 650 mg PO Q4HRS PRN PRN Reason: Pain, Mild/Fever, Can Take PO Stop: 09/15/18 04:18 Last Admin: 03/20/18 00:56 Dose: 650 mg Lipase/Protease/Amylase (Creon) 2 cap PO TIDMEAL ROBIN Stop: 09/16/18 07:59 Last Admin: 03/20/18 17:56 Dose: 2 cap Folic Acid (Folic Acid) 1 mg PO HS ROBIN Stop: 09/16/18 20:59 Last Admin: 03/20/18 20:48 Dose: 1 mg Glipizide (Glucotrol) 10 mg PO BIDAC ROBIN Stop: 09/16/18 17:29 Last Admin: 03/20/18 17:57 Dose: 10 mg Sodium Chloride (Ns) 1,000 mls @ 150 mls/hr IV CONT ROBIN Stop: 09/15/18 04:29 Last Admin: 03/20/18 20:53 Dose: 1,000 mls Levofloxacin/Dextrose (Levaquin 750 Mg (Premix)) 150 mls @ 100 mls/hr IV DAILY ROBIN PRN Reason: Protocol Stop: 04/18/18 15:59 Last Admin: 03/20/18 09:01 Dose: 150 mls Insulin Glargine (Lantus Syringe) 35 units SC BID ROBIN Stop: 09/15/18 08:59 Last Admin: 03/20/18 20:49 Dose: 35 units Insulin Human Lispro (Humalog Lispro) 0 unit SC ACHS ROBIN PRN Reason: Protocol Stop: 09/15/18 07:29 Last Admin: 03/20/18 20:48 Dose: 2 unit Lorazepam (Ativan Injection) 0.5 - 1 mg IVP Q6HRS PRN PRN Reason: Anxiety, Unable to Take PO Stop: 09/15/18 06:00 Last Admin: 03/20/18 23:04 Dose: 1 mg Morphine Sulfate (Morphine) 2 - 4 mg IVP Q3HRS PRN PRN Reason: Pain, Breakthrough Stop: 03/29/18 04:18 Last Admin: 03/21/18 00:17 Dose: 4 mg Ondansetron HCl (Zofran) 4 mg IVP Q4HRS PRN PRN Reason: Nausea/Vomiting, Can't Take PO Stop: 09/15/18 04:18 Last Admin: 03/20/18 19:46 Dose: 4 mg Ondansetron HCl (Zofran Odt) 4 mg PO Q4HRS PRN PRN Reason: Nausea/Vomiting, Use 1st Stop: 09/15/18 04:18 Last Admin: 03/20/18 10:19 Dose: 4 mg Oxycodone/Acetaminophen (Percocet 5/325) 1 - 2 tab PO Q4HRS PRN PRN Reason: Pain, Severe Able to Take PO Stop: 03/30/18 01:03 Last Admin: 03/20/18 23:02 Dose: 2 tab Pregabalin (Lyrica) 225 mg PO BID [facility] Stop: 09/16/18 01:14 Last Admin: 03/20/18 20:48 Dose: 225 mg Promethazine HCl (Phenergan) 6.25 - 12.5 mg IVP Q6HRS PRN PRN Reason: Nausea/Vomiting, Can't Take PO Stop: 09/16/18 02:34 Last Admin: 03/20/18 10:27 Dose: 6.25 mg Promethazine HCl (Phenergan) 25 mg PO Q4 PRN PRN Reason: Nausea/Vomiting, Use 1st Stop: 09/16/18 16:51 Last Admin: 03/20/18 17:56 Dose: 25 mg Tizanidine HCl (Zanaflex) 4 mg PO BID [facility] Stop: 09/16/18 01:14 Last Admin: 03/20/18 20:48 Dose: 4 mg Warfarin Sodium (Coumadin) 5 mg PO HS [facility] Stop: 09/16/18 20:59 Last Admin: 03/20/18 20:48 Dose: 5 mg Discontinued Medications Sodium Chloride (Ns) 1,000 mls @ 0 mls/hr IV EDNOW ONE; Wide Open PRN Reason: Protocol Stop: 03/19/18 02:16 Last Admin: 03/19/18 02:31 Dose: 1,000 mls Sodium Chloride (Ns) 1,000 mls @ 0 mls/hr IV ONCE ONE PRN Reason: Wide Open Stop: 03/19/18 02:36 Last Admin: 03/19/18 02:35 Dose: 1,000 mls Insulin Human Regular (Humulin R) 10 unit SC EDNOW ONE Stop: 03/19/18 03:12 Last Admin: 03/19/18 03:16 Dose: 10 units Morphine Sulfate (Morphine) 1 - 2 mg IVP Q4HRS PRN PRN Reason: Pain, Breakthrough Stop: 03/29/18 04:18 Last Admin: 03/19/18 05:07 Dose: 2 mg Nitrofurantoin Macrocrystals (Macrobid) 100 mg PO EDNOW ONE PRN Reason: Protocol Stop: 03/19/18 03:13 Last Admin: 03/19/18 03:17 Dose: 100 mg Point of Care Test Results: Chemistry 03/20/18 03/20/18 03/20/18 16:20 12:01 08:40 POC Glucose 177 mg/dL H mg/dL 246 mg/dL H mg/dL 115 mg/dL H mg/dL (70-100) (70-100) (70-100) POC Troponin I 03/19/18 03/19/18 03/19/18 21:11 17:41 10:58 POC Glucose 268 mg/dL H mg/dL 377 mg/dL H mg/dL 150 mg/dL H mg/dL (70-100) (70-100) (70-100) POC Troponin I 03/19/18 03/19/18 03/19/18 07:45 04:38 02:31 POC Glucose 184 mg/dL H mg/dL 377 mg/dL H mg/dL (70-100) (70-100) POC Troponin I 0.00 ng/mL ng/mL (0.00-0.08) Departure - Dep[facility] Clinical Impression: Hyperglycemia, Dehydration Ankle fracture Qualifiers: Encounter type: initial encounter Fracture type: closed Laterality: right Qualified Code(s): S82.891A - Other fracture of right lower leg, initial encounter for closed fracture UTI (urinary tract infection) Qualifiers: Urinary tract infection type: acute cystitis Hematuria presence: with hematuria Qualified Code(s): N30.01 - Acute cystitis with hematuria Condition: Fair
[2018-03-19 02:36] LABS: PLATELET COUNT 399 10^3/uL (150-400)
--- NOTE | 2018-03-19 02:49 | CPEKG ---
Heart Rate: 75 RR Interval: 800 P-R Interval: 132 QRSD Interval: 88 QT Interval: 412 QTC Interval: 461 P [place]: 50 QRS [place]: -17 T Wave [place]: 1 EKG Severity - ABNORMAL ECG - EKG Impression: SINUS RHYTHM EKG Impression: LEFT ATRIAL ABNORMALITY EKG Impression: BORDERLINE LEFT AXIS DEVIATION Electronically Signed By: Cr Petit 19-Mar-2018 07:19:42
[2018-03-19] MEDS ORDERED: INSULIN REGULAR HUMAN 100 UNIT/ML UNIT SC ONE (03:11)
[2018-03-19] MEDS ORDERED: NITROFURANTOIN MACROBID 100 MG CAP PO ONE (03:12)
[2018-03-19 03:59] LABS: INR 1.49 (0.83-1.16); PROTIME(PATIENT) 18.2 SEC (12.0-15.0)
[2018-03-19] MEDS: NS 1,000 ML IV SCH ×2 (05:08→14:43)
[2018-03-19] MEDS ORDERED: D50W 25 GM/50 ML VIAL IVP PRN (06:00)
[2018-03-19] MEDS: LORazepam 2 MG/ML INJ IVP PRN ×2 (06:26→20:00)
--- NOTE | 2018-03-19 07:58 | PDGENHP ---
History and Physical - Chief Complaint Syncope, right ankle pain - History of Present Illness Source-patient provides history is a reliable historian. EMR was reviewed and case discussed with ED provider. HPI-this is a pleasant 47-year-old female with past medical history significant for diabetes type 2 insulin dependent uncontrolled, and obesity, COPD with chronic hypoxic respiratory failure on 4 liters/minute daily, gastroparesis, history of Meniere's, history chronic pain and chronic opiate use, fibromyalgia , NOMAN and remote history of portal vein thrombosis on who presents emergency department today following a syncopal episode at home. Patient reports that for the last 3 days she has been having increasing frequency and urgency as well as some suprapubic pain. She woke up [facility] to go to the bathroom. She immediately felt lightheaded and dizzy and she felt that this was related to her Meniere's. Patient believes that she had a presyncopal episode. Patient recalls falling to the floor and hearing a crunch in her right ankle with pain. Patient also reports that she has been a little bit dehydrated as she has not been feeling well. She reports that she is experiencing some nausea related to her vertiginous symptoms. She has some photophobia. She has not had any emesis. She denies any fevers. He has a chronic cough. She has chronic numbness and tingling in her toes related to neuropathy. Patient is complaining of right ankle pain. It was placed to the splint in the emergency department. She is also complaining of spasms in this extremity. History Information - Allergies/Home Medication List Allergies/Adverse Reactions: aspirin Allergy (Verified 03/19/18 02:18) azithromycin [From Zithromax] Allergy (Verified 03/19/18 02:18) cephalexin monohydrate [From Keflex] Allergy (Verified 03/19/18 02:18) clindamycin Allergy (Verified 03/19/18 02:18) metformin Allergy (Verified 03/19/18 02:18) NSAIDS (Non-Steroidal Anti-Inflamma Allergy (Verified 03/19/18 02:18) tramadol Allergy (Verified 03/19/18 02:18) all cillins Allergy (Uncoded 10/31/15 07:42) MONOHYDRATE Allergy (Uncoded 02/15/16 12:44) Home Medications: Insulin Detemir [Levemir] 50 unit SQ DAILY 08/14/15 [Last Taken 03/01/17] Potassium Cl [Klor-Con 20 meq (*)] 40 meq PO BID 08/14/15 [Last Taken 03/01/17] tiZANidine HCL [Zanaflex 2MG (*)] 4 mg PO BID 08/14/15 [Last Taken 03/01/17] Albuterol [Proventil Inhaler HFA (*)] 1 - 2 puffs IH DAILY PRN 11/22/15 [Last Taken 03/01/17] Warfarin Sodium [Coumadin 5MG (*)] 5 mg PO SUMOTUWETHSA@16 11/22/15 [Last Taken 03/01/17] Ergocalciferol [Vitamin D2 (*)] 50,000 unit PO ISBELL@0900 12/19/15 [Last Taken 03/11] Folic Acid [Folic Acid 1 MG (*)] 1 mg PO HS 12/19/15 [Last Taken 03/01/17] Warfarin Sodium [Coumadin 7.5MG (*)] 7.5 mg PO FR@16 12/19/15 [Last Taken ] Insulin Detemir [Levemir] 35 - 50 unit SQ DAILY@18 02/15/16 [Last Taken 03/01/17 ] Promethazine HCl [Phenergan 25mg (*)] 25 - 50 mg PO Q4-6PRN PRN 02/15/16 [Last Taken 03/01/17] glipiZIDE [Glipizide] 10 mg PO BIDAC 04/01/16 [Last Taken 03/01/17] Furosemide [Lasix 40 MG (*)] 40 mg PO BID 04/06/16 [Last Taken 03/01/17] I have personally reviewed and updated: family history, medical history, social history, surgical history - Past Medical History Additional medical history: Insulin-dependent DM 2 uncontrolled with neuropathy and gastroparesis. Obesity (BMI 30.0). COPD with chronic hypoxic respiratory failure requiring 4 liters/minute oxygen daily. NOMAN. Fibromyalgia. Chronic pain with history of chronic opiate use. History of portal vein thrombus not currently on anticoagulation. Meniere's disease. Listed chronic pancreatitis - Surgical History Additional surgical history: Coli, splenectomy, appy - Family History Additional family history: Father with history of dementia. Several family members dm 2 - Social History Smoking Status: Current every day smoker Alcohol Use: None Drug Use: Marijuana (THC oil) Additional social history: Patient lives alone. Cor status-full. Review of Systems Review of Systems: ROS: 10pt was reviewed & negative except for what was stated in HPI & below Constitutional: Denies: chills, fever EENMT: Reports: no symptoms Cardiac: Reports: no symptoms, lightheadedness, syncope. Denies: edema Respiratory: Reports: cough (Chronic), shortness of breath (Chronic on supplemental oxygen) Gastrointestinal: Reports: abdominal pain (Suprapubic pain), nausea. Denies: vomitting, diarrhea Genitourinary: Reports: dysuria, frequency, urgency. Denies: hematuria Muscolosketal: Reports: joint pain, other (Chronic diffuse pain, acute right ankle pain as per HPI) Skin: Reports: no symptoms Neurological: Reports: numbness, tingling (Bilateral lower feet.). Denies: emotional problems Hematologic/Lymphatic: Reports: no symptoms Physical Exam Physical Exam: Selected Entries 03/19/18 02:05 Blood Pressure Automatic Method Heart Rate 90 Respiratory 19 Rate O2 Sat (%) 97 Temperature (C) 36.7 C Blood Pressure 111/75 Mean Arterial 87 Pressure (MAP) O2 (L/minute) 3 O2 Delivery Nasal Cannula Mode Temperature Oral Source Temp Pulse Resp BP Pulse Ox 36.9 C 80 16 101/64 93 03/19/18 07:42 03/19/18 07:42 03/19/18 07:42 03/19/18 07:42 03/19/18 07:42 O2 (L/minute) 3 Constitutional: no apparent distress, obese, uncomfortable, other (NAD. Patient is lying in bed intermittently complains of her ankle pain.), No not in pain Eyes: PERRL, anicteric sclera, EOMI, No scleral injection Ears, Nose, Mouth, Throat: no oral mucosal ulcers, dry mucous membranes, other ( No nasal discharge), No poor dentition Cardiovascular: regular rate and rhythym, no murmur, rub, or gallop, No edema Peripheral Pulses: 0: dorsalis-pedis (R) (Unable to assess as patient has a splint on), 2+: dorsalis-pedis (L) Respiratory: no respiratory distress, no rales or rhonchi, clear to auscultation , reduced air movement (Diminished bibasilarly.), No expiratory wheeze, No inspiratory crackles, No respiratory distress Gastrointestinal: normoactive bowel sounds, soft, non-tender abdomen, other ( Obese abdomen), No distension Genitourinary: other (Positive suprapubic tenderness palpation. No CVA tenderness. Patient has up superficial back pain lower lumbar sacral region), No escudero in urethra Skin: warm, normal color, no rashes or abrasions, No rash Musculoskeletal: full muscle strength, pain with ROM (Chronic pain in all joints. Acutely and right foot), No generalized weakness Neurologic: AAOx3, sensation intact bilaterally, No facial droop Psychiatric: interacting appropriately, not encephalopathic, anxious Lab Data & Imaging Review 03/19/18 02:25 03/19/18 02:25 WBC 13.35 10^3/uL (3.80-9.50) H 03/19/18 02:25 RBC 5.05 10^6/uL (4.18-5.33) 03/19/18 02:25 Hgb 11.1 g/dL (12.6-16.3) L 03/19/18 02:25 Hct 33.9 % (38.0-47.0) L 03/19/18 02:25 MCV 67.1 fL (81.5-99.8) L 03/19/18 02:25 MCH 22.0 pg (27.9-34.1) L 03/19/18 02:25 MCHC 32.7 g/dL (32.4-36.7) 03/19/18 02:25 RDW 16.6 % (11.5-15.2) H 03/19/18 02:25 Plt Count 399 10^3/uL (150-400) 03/19/18 02:25 MPV 11.7 fL (8.7-11.7) 03/19/18 02:25 Neut % (Auto) 69.8 % (39.3-74.2) 03/19/18 02:25 Lymph % (Auto) 15.6 % (15.0-45.0) 03/19/18 02:25 [place] % (Auto) 10.8 % (4.5-13.0) 03/19/18 02:25 Eos % (Auto) 2.3 % (0.6-7.6) 03/19/18 02:25 Baso % (Auto) 1.1 % (0.3-1.7) 03/19/18 02:25 Nucleat RBC Rel Count 2.1 % (0.0-0.2) H 03/19/18 02:25 Absolute Neuts (auto) 9.32 10^3/uL (1.70-6.50) H 03/19/18 02:25 Absolute Lymphs (auto) 2.08 10^3/uL (1.00-3.00) 03/19/18 02:25 Absolute Monos (auto) 1.44 10^3/uL (0.30-0.80) H 03/19/18 02:25 Absolute Eos (auto) 0.31 10^3/uL (0.03-0.40) 03/19/18 02:25 Absolute Basos (auto) 0.15 10^3/uL (0.02-0.10) H 03/19/18 02:25 Absolute Nucleated RBC 0.28 10^3/uL (0-0.01) H 03/19/18 02:25 Immature Gran % 0.4 % (0.0-1.1) 03/19/18 02:25 Immature Gran # 0.05 10^3/uL (0.00-0.10) 03/19/18 02:25 Platelet Estimate ADEQUATE (ADEQ) 03/19/18 02:25 Polychromasia 1+ H 03/19/18 02:25 Hypochromasia 2+ H 03/19/18 02:25 Basophilic Stippling 1+ H 03/19/18 02:25 Microcytic Cells 1+ H 03/19/18 02:25 Oval Macrocytes 1+ H 03/19/18 02:25 Elliptocytes 1+ H 03/19/18 02:25 PT 18.2 SEC (12.0-15.0) H 03/19/18 02:25 INR 1.49 (0.83-1.16) H 03/19/18 02:25 APTT 32.1 SEC (23.0-38.0) 03/19/18 02:25 Sodium 131 mEq/L (135-145) L 03/19/18 02:25 Potassium 4.9 mEq/L (3.3-5.0) 03/19/18 02:25 Chloride 92 mEq/L (97-110) L 03/19/18 02:25 Carbon Dioxide 31 mEq/l (22-31) 03/19/18 02:25 Anion Gap 8 mEq/L (8-16) 03/19/18 02:25 BUN 30 mg/dL (7-23) H 03/19/18 02:25 Creatinine 1.3 mg/dL (0.6-1.0) H 03/19/18 02:25 Estimated GFR 44 03/19/18 02:25 Glucose 527 mg/dL (70-100) H* 03/19/18 02:25 POC Glucose 184 mg/dL (70-100) H 03/19/18 07:45 Calcium 8.7 mg/dL (8.5-10.4) 03/19/18 02:25 Magnesium 2.6 mg/dL (1.6-2.3) H 03/19/18 02:25 POC Troponin I 0.00 ng/mL (0.00-0.08) 03/19/18 02:31 Urine Color YELLOW 03/19/18 02:45 Urine Appearance HAZY 03/19/18 02:45 Urine pH 5.0 (5.0-7.5) 03/19/18 02:45 Ur Specific [place] 1.018 (1.002-1.030) 03/19/18 02:45 Urine Protein NEGATIVE (NEGATIVE) 03/19/18 02:45 Urine Ketones NEGATIVE (NEGATIVE) 03/19/18 02:45 Urine Blood NEGATIVE (NEGATIVE) 03/19/18 02:45 Urine Nitrate POSITIVE (NEGATIVE) H 03/19/18 02:45 Urine Bilirubin NEGATIVE (NEGATIVE) 03/19/18 02:45 Urine Urobilinogen NEGATIVE EU (0.2-1.0) 03/19/18 02:45 Ur Leukocyte Esterase TRACE (NEGATIVE) H 03/19/18 02:45 Urine RBC 1-3 /hpf (0-3) 03/19/18 02:45 Urine WBC 50-182 /hpf (0-3) H 03/19/18 02:45 Ur Epithelial Cells 1+ /lpf (NONE-1+) 03/19/18 02:45 Urine Bacteria 4+ /hpf (NONE SEEN) H 03/19/18 02:45 Urine Mucus TRACE /lpf (NONE-1+) 03/19/18 02:45 Urine Glucose 3+ (NEGATIVE) H 03/19/18 02:45 Imaging Review: Right ankle series - image and report reviewed minimally displaced medial malleolar fracture. Portable Chest, 2:25 AM History: Chest pain Comparison: 10/22/2016 Findings: There is a stable thin scar at the left lung base. Lungs otherwise clear. Heart size and pulmonary vascularity are normal. No pleural effusion or pneumothorax. Oxygen tubing overlies the chest. Impression: Nothing acute identified. EKG additional interpertation: NSR in the 70s. QTC is 461. T-wave inversions lead 3 and AVF. Compared to EKG from 07/2015 - not significantly changed. Assessment & Plan Assessment: 47-year-old female with past medical history significant for poorly controlled DM 2 with neuropathy and gastroparesis, , Meniere COPD with chronic hypoxic respiratory failure on 4 liters/minute daily, chronic opiate use with chronic pain syndrome and fibromyalgia, NOMAN, history of a portal vein thrombus not currently on anticoagulation who presents to the ED following a pre-syncopal episode and right ankle pain. #Presyncope - patient does have a history of Meniere's on but she does appear to be a little dehydrated and has mild acute kidney injury in setting of acute UTI. Orthostatics with likely be abnormal on but patient with some limited mobility due to right ankle fracture. Continue with IV fluid hydration. Symptoms are slowly improving. #UTI (urinary tract infection) (Acute) - patient is symptomatic. She has been started on Levaquin which will continue. She has numerous reactions to various antibiotics. #Ankle fracture (Acute) - patient has been splinted in the emergency department here orthopedics has been consulted in the ED. Patient with a mildly displaced right medial malleolus fracture. She will be NPO pending their recommendations. #Dehydration (Acute) - NPO and IV fluids to continue. #Hyponatremia - secondary to hypovolemia. IV fluids as noted above. Monitor with a.m. BMP. #Dm 2 - insulin dependent and uncontrolled with neuropathy. - patient reports her blood sugars are particularly elevated last several days and she started having symptoms of UTI. Patient without any evidence of DKA. While she is NPO will slightly decrease her Levemir. Moderate dose sliding scale. Resume her glipizide when med rec available and diet advanced. #Anemia - appears to be iron deficiency based on previously available iron studies. Outpatient followup with PCP. No evidence of active bleeding at this time. #COPD without exacerbation and chronic hypoxic respiratory failure - continue supplemental oxygen. Resume home medications when med rec available. Albuterol nebulizer p.r.n.. #History of chronic pain with chronic opiate use - patient advised will need to moderate her pain medications. Reported right ankle pain slightly out of proportion to injury but patient is also complaining of her chronic pain symptoms as well. #Meniere's disease - up with assist. Patient reports her symptoms are slightly improved after IV fluids. Likely component of orthostasis. #NOMAN - continue oxygen. CPAP if available. #Fibromyalgia - supportive care. FEN - IV fluids as noted above. Electrolyte monitoring replacement if needed. Patient currently NPO when okay with Ortho advance to ADA diet. Encourage oral hydration. PPX-SCD to the left leg. Holding anticoagulation pending ortho eval. Cor status-full Disposition-patient admitted observation status on the medical floor. Anticipate less than 2 midnight stay.
[2018-03-19] MEDS ORDERED: ALBUTEROL 3 ML DEYVIAL IH PRN (08:02)
[2018-03-19] MEDS: INSULIN GLARGINE 100 UNITS/ML UNIT SC SCH ×3 (09:35→21:24)
[2018-03-19] MEDS: INSULIN LISPRO 100 UNIT/ML SC SCH ×4 (09:35→21:24)
--- NOTE | 2018-03-19 10:16 | ASMTCMCOM ---
CM Note CM Note Notes: Patient with multiple medical problems (including chronic opiate use and poorly controlled DMII) admitted following a pre-syncopal episode and subsequent minimally displaced medial malleolar fracture. I spoke with her about her living situation - she lives alone and has an elevator up to her apartment. She is normally independent. PT/OT ordered, as well as an ortho consult. Patient sees providers at [facility] for primary and mental health care. Case Managment will follow for d/c planning. Date Signed: 03/19/2018 10:15 AM Electronically Signed By:Colleen Kang RN
--- NOTE | 2018-03-19 15:36 | HOSPPROG ---
Hospitalist Progress Note Assessment/Plan: Assessment: 47-year-old female presenting with acute syncopal episode and traumatic fracture located in her right ankle, secondary to urinary tract infection and acute hyponatremia Plan: 1. Syncope. Most likely secondary to hypovolemia from infection, monitoring on telemetry for any events 2. Urinary tract infection. Present on admission, positive urinalysis, urine culture currently pending -continue on IV levofloxacin, day 1 of 3 -monitor leukocytosis -monitor urine culture results 3. Traumatic ankle fracture. Right ankle, medial malleoli, nonsurgical per Orthopedics -patient's physical mobility and functional status remains significantly impaired secondary to pain -continue orthotic -follow-up as an outpatient with Orthopedics -pain control as needed -PT and OT ordered 4. Chronic hypoxic respiratory failure. Continue on supplemental oxygen 5. Fibromyalgia. Chronic, anticipate the patient will have a higher pain sensitivity and will require higher pain medications then otherwise anticipated 6. Hyponatremia. Acute, most likely secondary to hypovolemia in the setting of infection, give normal saline and repeat level 7. Diabetes mellitus with hyperglycemia. Most likely secondary to infection, the patient will be continued on her Lantus and insulin sliding scale Diet. Diabetic Prophylaxis. High risk patient, Lovenox 40 Code. Full Disposition. Anticipated discharge is 03/20, pending safe ambulation outlined above. Subjective: The patient is somnolent after receiving pain medications Objective: Vital Signs Temp Pulse Resp BP Pulse Ox 36.8 C 89 16 108/60 92 03/19/18 12:32 03/19/18 12:32 03/19/18 12:32 03/19/18 12:32 03/19/18 12:32 03/18/18 03/19/18 03/20/18 05:59 05:59 05:59 Intake Total 2250 Output Total 750 300 Balance 1500 -300 PT 18.2 SEC (12.0-15.0) H 03/19/18 02:25 INR 1.49 (0.83-1.16) H 03/19/18 02:25 - Physical Exam Constitutional: no apparent distress, not in pain, chronically ill appearing, obese, No uncomfortable Cardiovascular: regular rate and rhythym, no murmur, rub, or gallop Respiratory: no respiratory distress, no rales or rhonchi, clear to auscultation Gastrointestinal: normoactive bowel sounds, soft, non-tender abdomen, no palpable masses Musculoskeletal: other (Right lower extremity with bandaging and brace) ICD10 Worksheet Patient Problems: Problems Problem Status Onset Chronic back pain Acute Diarrhea Acute Chronic pancreatitis Chronic Abdominal pain Chronic Hyperglycemia due to type 2 diabetes mellitus Acute Hyperglycemia without ketosis Acute Subtherapeutic international normalized ratio (INR) Acute Acute gastroenteritis Acute Pain, dental Acute Hyperglycemia Acute Ankle fracture Acute Dehydration Acute UTI (urinary tract infection) Acute
[2018-03-19] MEDS: ACETAMINOPHEN 325 MG TAB PO PRN (17:23)
[2018-03-19] MEDS: ONDANSETRON 4 MG/2 ML VIAL IVP PRN (23:22)
--- NOTE | 2018-03-19 23:29 | GCON ---
[f rep st] CONSULTATION DATE OF CONSULTATION: 03/19/2018 REASON SEEN IN CONSULTATION: Right ankle injury. HISTORY OF PRESENT ILLNESS: This is a 47-year-old female with past medical history of type 2 insulin -dependent diabetes, poorly controlled; obesity; COPD on 4 L oxygen daily; gastroparesis; chronic maxime n and chronic opiate use; fibromyalgia; obstructive sleep apnea. She presented to the emergency depar tment today after a syncopal episode at home. When she woke up in the morning to go to the bathroom, she felt lightheaded and fell. When she fell to the floor, she felt a crunch in her right ankle and p ain in that ankle. She then presents presented to the ER due to the ankle pain. In the ER, she was ev aluated by the ER staff as well as the hospitalist team, who admitted her for treatment of a likely U TI. I was consulted for management of the ankle fracture. The ER team splinted the right ankle. PAST MEDICAL HISTORY: As mentioned above, plus Meniere disease, history of chronic pancreatitis, his tory of portal vein thrombosis. ALLERGIES: Aspirin, azithromycin, Keflex, clindamycin, metformin, NSAIDs, tramadol, penicillins. HOME MEDICATIONS: Please see the [facility] list. SURGICAL HISTORY: Cholecystectomy, splenectomy, appendectomy. FAMILY HISTORY: Noncontributory to the ankle fracture. SOCIAL HISTORY: She is an everyday smoker. Drug use: She uses marijuana. REVIEW OF SYSTEMS: Negative except for as noted above. PHYSICAL EXAMINATION: GENERAL: Seen this evening. She appears alert and oriented, in moderate pain, right ankle. The ankle is splinted. She is resting on the bed. LOWER EXTREMITY: She has intact dorsif lexion, plantar flexion of her great toe and her toes. Only able to check sensation of the toes. She has full sensation to the 1st and 2nd toes and describes some subjective numbness to the lateral 3 to es. She states that this is similar to what she is experiencing in her right foot. Her toes are well perfused. IMAGING: I reviewed x-ray of the right ankle, which demonstrates a vertical nondisplaced medial mall eolus fracture. There is no widening of the syndesmosis. ASSESSMENT/PLAN: Nondisplaced right medial malleolus fracture. The patient with multiple medical com orbidities including noncontrolled insulin-dependent diabetes mellitus in a patient who is an everyda y smoker. PLAN: For this nondisplaced fracture, closed treatment with splinting and immobilization is indicate d. We will plan on seeing her in the [facility] in 1 week where she will be transi tioned to either cast or a boot. She is to remain nonweightbearing of the right lower extremity. She should elevate the right lower extremity as much as possible. Her everyday tobacco use is a risk fact or for nonunion or delayed union. Please call me if there are any further questions about the managem ent of this patient. /[id number]/MODL
[2018-03-20] MEDS: ACETAMINOPHEN 325 MG TAB PO PRN (00:56)
[2018-03-20] MEDS ORDERED: PREGABALIN 150 MG CAP PO SCH (01:15)
[2018-03-20] MEDS: OXYCODONE/APAP 5/325 TAB PO PRN ×5 (01:19→23:02)
[2018-03-20] MEDS: PREGABALIN 75 MG CAP PO SCH ×3 (01:20→20:48)
[2018-03-20] MEDS: ONDANSETRON DISINTEGRATING 4 MG TAB PO PRN ×2 (02:21→10:19)
[2018-03-20] MEDS: PROMETHAZINE HCL 25 MG/ML INJ IVP PRN ×2 (02:48→10:27)
[2018-03-20 04:53] LABS: INR 1.77 (0.83-1.16); PROTIME(PATIENT) 20.7 SEC (12.0-15.0)
[2018-03-20] MEDS: LORazepam 2 MG/ML INJ IVP PRN ×2 (05:15→23:04)
[2018-03-20] MEDS: INSULIN GLARGINE 100 UNITS/ML UNIT SC SCH ×2 (08:59→20:49)
[2018-03-20] MEDS: LIPASE 24,000/AMYLASE/PROTEASE (CREON) 1 CAP PO SCH ×3 (08:59→17:56)
[2018-03-20] MEDS: INSULIN LISPRO 100 UNIT/ML SC SCH ×4 (09:41→20:48)
--- NOTE | 2018-03-20 16:30 | ASMTCMCOM ---
CM Note CM Note Notes: Pt agreed to 30-day stay in [facility] Medicaid bed today but [employer] stated that pt would have to relinquish her $730 monthly check from [employer] and would only be allowed to keep $50 for the time she is at SNF. Pt declined b/c she would not be able to pay her rent or bills. Pt did agree to HC RN/PT/OT/POWER MULE OPERATOR at [facility]. [facility] will provide. [facility] submitted for pt to get [employer] which will provide 20-25 hrs/week of unskilled help in the home. Pt awar that it may take 30 days to be approved. Pt will also be signed up for meals on wheels. She was also given info on home delivery of groceries. Pt given loan closet list for bedside commode. DC unclear. CM to follow. Date Signed: 03/20/2018 04:29 PM Electronically Signed By:Rosalie Herrera LCSW
--- NOTE | 2018-03-20 16:58 | HOSPPROG ---
Hospitalist Progress Note Assessment/Plan: Assessment: 47-year-old female presenting with acute syncopal episode and traumatic fracture located in her right ankle, secondary to urinary tract infection and acute hyponatremia Plan: # Syncope. Most likely secondary to hypovolemia from infection, monitoring on telemetry for any events # Urinary tract infection. Present on admission, positive urinalysis, urine culture GNR -continue on IV levofloxacin, day 2 of 3 -monitor urine culture results # Traumatic ankle fracture. Right ankle, medial malleoli, nonsurgical per Orthopedics -patient's physical mobility and functional status remains significantly impaired secondary to pain, she is completely unable to safely perform ADLs -continue orthotic -follow-up as an outpatient with Orthopedics -pain control as needed -PT and OT ordered -per ortho, NWB RLE, keep on cast, elevate f/u w/ Dr. Montaño 1 week 4. Chronic hypoxic respiratory failure. Continue on supplemental oxygen 5. Fibromyalgia. Chronic, anticipate the patient will have a higher pain sensitivity and will require higher pain medications then otherwise anticipated 6. Hyponatremia. Acute, most likely secondary to hypovolemia in the setting of infection, resolved 7. Diabetes mellitus with hyperglycemia. Most likely secondary to infection, the patient will be continued on her Lantus, glyburide, insulin sliding scale Diet. Diabetic Prophylaxis. High risk patient, Lovenox 40 Code. Full Disposition. Anticipated discharge is uncertain, upgrade to inpatient admission status re: anticipated LOS > 48hrs for reasonable medical necessity for ongoing inability to safely complete ADLs, significant pain, requiring PT/OT /SNF Subjective: patient reports pain in leg, feels sleepy b/c she didn't sleep well last night Objective: Vital Signs Temp Pulse Resp BP Pulse Ox 36.8 C 87 12 120/74 94 03/20/18 15:57 03/20/18 15:57 03/20/18 15:57 03/20/18 15:57 03/20/18 15:57 PT 20.7 SEC (12.0-15.0) H 03/20/18 04:14 INR 1.77 (0.83-1.16) H 03/20/18 04:14 - Physical Exam Constitutional: no apparent distress, chronically ill appearing, obese, uncomfortable, No not in pain (mild) Cardiovascular: regular rate and rhythym, no murmur, rub, or gallop, edema ( trace LLE) Respiratory: no respiratory distress, no rales or rhonchi, clear to auscultation Gastrointestinal: normoactive bowel sounds, soft, non-tender abdomen, no palpable masses, No distension Psychiatric: not anxious, flat affect, other (somnolent but arousable to tactile stimuli), No agitated ICD10 Worksheet Patient Problems: Problems Problem Status Onset Chronic back pain Acute Diarrhea Acute Chronic pancreatitis Chronic Abdominal pain Chronic Hyperglycemia due to type 2 diabetes mellitus Acute Hyperglycemia without ketosis Acute Subtherapeutic international normalized ratio (INR) Acute Acute gastroenteritis Acute Pain, dental Acute Hyperglycemia Acute Ankle fracture Acute Dehydration Acute UTI (urinary tract infection) Acute
--- NOTE | 2018-03-20 17:26 | PDMN ---
Medical Necessity Medical necessity: Change to IP, as of 03/20/18, per MD; los >2 n for ongoing management of traumatic ankle fx w/inability to safely complete ADLs & significant pain, as well as UTI; requiring IV abx, IVFs, pain management & therapies; hx uncontrolled diabetes, neuropathy & COPD
[2018-03-20] MEDS: PROMETHAZINE HCL 25 MG TAB PO PRN (17:56)
[2018-03-20] MEDS: glipiZIDE 10 MG TAB PO SCH (17:57)
[2018-03-20] MEDS: NS 1,000 ML IV SCH ×2 (18:03→20:53)
[2018-03-20] MEDS: ONDANSETRON 4 MG/2 ML VIAL IVP PRN (19:46)
[2018-03-20] MEDS: FOLIC ACID 1 MG TAB PO SCH (20:48)
[2018-03-20] MEDS: WARFARIN SODIUM 5 MG TAB PO SCH (20:48)
[2018-03-21] MEDS: PROMETHAZINE HCL 25 MG/ML INJ IVP PRN ×2 (01:42→12:39)
[2018-03-21] MEDS: OXYCODONE/APAP 5/325 TAB PO PRN ×4 (02:58→23:00)
[2018-03-21] MEDS: LORazepam 2 MG/ML INJ IVP PRN (05:12)
[2018-03-21 05:33] LABS: INR 1.51 (0.83-1.16); PROTIME(PATIENT) 18.4 SEC (12.0-15.0)
--- NOTE | 2018-03-21 08:35 | HOSPPROG ---
Hospitalist Progress Note Assessment/Plan: #Acute syncope: from acute illness, hypovolemia #Hypoglycemia: 53 this AM. Reports lows often in morning. Will reduce evening Lantus #E coli UTI: IV ceftriaxone #Nondisplaced ankle fracture: immobilized. FU ortho 1 week for cast. CM trying to arrange for scooter #Chronic hypoxic resp failure: NOMAN #Fibromyalgia: home meds #Uncontrolled diabetes #Hypovolemic hyponatremia: holding Lasix #h/o portal vein thrombosis: has been off Coumadin #Chronic opiate dependence #Deconditioning: PT/OT #DVT ppx: coumadin #Disp: cont inpatient admission for IV abx, Subjective: nauseated, dizziness this morning, hypoglycemic to 53 Objective: Vital Signs Temp Pulse Resp BP Pulse Ox 36.9 C 94 18 96/60 L 98 03/21/18 04:00 03/21/18 04:00 03/21/18 04:00 03/21/18 04:00 03/21/18 04:00 03/20/18 03/21/18 03/22/18 05:59 05:59 05:59 Intake Total 4300 Output Total 3000 Balance 1300 PT 18.4 SEC (12.0-15.0) H 03/21/18 04:31 INR 1.51 (0.83-1.16) H 03/21/18 04:31 - Time Spent With Patient Time Spent with Patient: greater than 35 minutes Time Spent with Patient: Greater than 35 minutes spent on this patients care, greater than 50% of time spent counseling, educating, and coordinating care regarding the above mentioned plan. - Physical Exam Constitutional: obese Eyes: PERRL Ears, Nose, Mouth, Throat: moist mucous membranes Cardiovascular: regular rate and rhythym, no murmur, rub, or gallop Respiratory: no respiratory distress Gastrointestinal: normoactive bowel sounds Genitourinary: no bladder fullness Skin: warm Musculoskeletal: full muscle strength Neurologic: CN II-XII Intact Psychiatric: flat affect ICD10 Worksheet Patient Problems: Problems Problem Status Onset Ankle fracture Acute Dehydration Acute Hyperglycemia Acute UTI (urinary tract infection) Acute Acute gastroenteritis Acute Chronic back pain Acute Diarrhea Acute Hyperglycemia due to type 2 diabetes mellitus Acute Hyperglycemia without ketosis Acute Pain, dental Acute Subtherapeutic international normalized ratio (INR) Acute Abdominal pain Chronic Chronic pancreatitis Chronic
[2018-03-21] MEDS: PREGABALIN 75 MG CAP PO SCH ×2 (09:35→21:44)
[2018-03-21] MEDS: LIPASE 24,000/AMYLASE/PROTEASE (CREON) 1 CAP PO SCH ×3 (09:36→17:38)
[2018-03-21] MEDS: INSULIN LISPRO 100 UNIT/ML SC SCH ×4 (09:36→21:43)
[2018-03-21] MEDS: ONDANSETRON 4 MG/2 ML VIAL IVP PRN (10:10)
[2018-03-21] MEDS: glipiZIDE 10 MG TAB PO SCH ×2 (10:11→17:38)
[2018-03-21] MEDS: INSULIN GLARGINE 100 UNITS/ML UNIT SC SCH (10:11)
[2018-03-21] MEDS: NS 1,000 ML IV SCH ×2 (11:24→17:38)
[2018-03-21] MEDS ORDERED: MECLIZINE HCL 12.5 MG TAB PO PRN (13:16)
[2018-03-21] MEDS: tiZANidine HCL 2 MG TAB PO SCH (15:35)
[2018-03-21] MEDS ORDERED: INSULIN GLARGINE 100 UNITS/ML UNIT SC SCH (21:00)
[2018-03-21] MEDS: FOLIC ACID 1 MG TAB PO SCH (21:44)
[2018-03-21] MEDS: WARFARIN SODIUM 5 MG TAB PO SCH (21:44)
[2018-03-22] MEDS: ONDANSETRON 4 MG/2 ML VIAL IVP PRN (01:30)
[2018-03-22] MEDS: NS 1,000 ML IV SCH ×2 (01:36→07:58)
[2018-03-22] MEDS: PROMETHAZINE HCL 25 MG/ML INJ IVP PRN ×3 (03:56→17:42)
[2018-03-22] MEDS: OXYCODONE/APAP 5/325 TAB PO PRN ×3 (03:56→13:37)
[2018-03-22 04:55] LABS: INR 1.26 (0.83-1.16)
[2018-03-22] MEDS: ONDANSETRON DISINTEGRATING 4 MG TAB PO PRN (07:49)
[2018-03-22] MEDS ORDERED: INSULIN GLARGINE 100 UNITS/ML UNIT SC SCH ×2 (09:00→12:37)
--- NOTE | 2018-03-22 09:09 | HOSPPROG ---
Hospitalist Progress Note Assessment/Plan: #Uncontrolled DM: A1c 12%. Reduced evening Lantus dose for hypoglycemia. Reduce am dose too since decreased PO intake #Acute syncope: from acute illness, hypovolemia #E coli UTI: completed 3 days abx #Nondisplaced ankle fracture: immobilized. FU ortho 1 week for cast. CM trying to arrange for scooter #Chronic hypoxic resp failure: NOMAN #Fibromyalgia: home meds #Vertigo: meclizine #Hypovolemic hyponatremia: holding Lasix #h/o portal vein thrombosis: Coumadin #Chronic opiate dependence #Deconditioning: PT/OT: declined SNF. CM to provide any available services. #DVT ppx: coumadin #Disp: cont inpatient admission for PT/OT, PRN antiemetics Subjective: c/o vertigo, nausea this morning Objective: Vital Signs Temp Pulse Resp BP Pulse Ox 37.0 C 92 12 84/65 L 98 03/22/18 03:11 03/22/18 08:00 03/22/18 08:00 03/22/18 08:00 03/22/18 08:00 03/21/18 03/22/18 03/23/18 05:59 05:59 05:59 Intake Total 4300 2840 Output Total 3000 2300 550 Balance 1300 540 -550 PT 16.0 SEC (12.0-15.0) H 03/22/18 04:25 INR 1.26 (0.83-1.16) H 03/22/18 04:25 - Physical Exam Constitutional: obese, other (agitated, snapped at me when entering room) Eyes: PERRL Ears, Nose, Mouth, Throat: moist mucous membranes Cardiovascular: regular rate and rhythym Respiratory: no respiratory distress Gastrointestinal: normoactive bowel sounds Genitourinary: no bladder fullness Skin: warm Musculoskeletal: other (TTP over extremities with min touch. Right ankle wrapped ) Neurologic: CN II-XII Intact Psychiatric: poor insight, poor judgement ICD10 Worksheet Patient Problems: Problems Problem Status Onset Ankle fracture Acute Dehydration Acute Hyperglycemia Acute UTI (urinary tract infection) Acute Acute gastroenteritis Acute Chronic back pain Acute Diarrhea Acute Hyperglycemia due to type 2 diabetes mellitus Acute Hyperglycemia without ketosis Acute Pain, dental Acute Subtherapeutic international normalized ratio (INR) Acute Abdominal pain Chronic Chronic pancreatitis Chronic
[2018-03-22] MEDS: PREGABALIN 75 MG CAP PO SCH ×2 (09:27→22:02)
[2018-03-22] MEDS: LIPASE 24,000/AMYLASE/PROTEASE (CREON) 1 CAP PO SCH ×3 (09:33→17:42)
[2018-03-22] MEDS: glipiZIDE 10 MG TAB PO SCH ×2 (09:34→17:50)
[2018-03-22] MEDS: INSULIN LISPRO 100 UNIT/ML SC SCH ×4 (10:30→22:04)
[2018-03-22] MEDS ORDERED: MECLIZINE HCL 12.5 MG TAB PO PRN (12:27)
[2018-03-22] MEDS: MECLIZINE HCL 25 MG TAB PO PRN (12:43)
[2018-03-22] MEDS: tiZANidine HCL 2 MG TAB PO SCH (13:37)
[2018-03-22] MEDS: INSULIN GLARGINE 100 UNITS/ML UNIT SC SCH ×2 (13:51→22:04)
--- NOTE | 2018-03-22 15:14 | ASMTCMCOM ---
CM Note CM Note Notes: Pt may be ready for DC tomorrow. The [facility] pharamacy could get pt a scooter for $100 for four weeks. Pt is asking friends for help paying for it, She would need a script. PT also proposing that pt get a wheelchair from a loan closet and use it with one foot. CM to follow. Plan: [facility] with RN, PT, OT and RANGE AIDE. Date Signed: 03/22/2018 03:13 PM Electronically Signed By:Rosalie Herrera LCSW
[2018-03-22] MEDS ORDERED: oxyCODONE IR 5 MG TAB PO PRN (16:36)
[2018-03-22] MEDS: oxyCODONE IR 5 MG TAB PO PRN (17:42)
[2018-03-22] MEDS: WARFARIN SODIUM 5 MG TAB PO SCH (22:03)
[2018-03-22] MEDS: FOLIC ACID 1 MG TAB PO SCH (22:03)
[2018-03-22] MEDS: ACETAMINOPHEN 325 MG TAB PO PRN (22:03)
[2018-03-22] MEDS: LORazepam 2 MG/ML INJ IVP PRN (22:03)
[2018-03-23] MEDS: PROMETHAZINE HCL 25 MG/ML INJ IVP PRN ×4 (00:35→21:01)
[2018-03-23] MEDS: oxyCODONE IR 5 MG TAB PO PRN ×2 (00:36→06:37)
[2018-03-23] MEDS ORDERED: oxyCODONE IR 5 MG TAB PO ONE (01:11)
[2018-03-23] MEDS: ACETAMINOPHEN 325 MG TAB PO PRN ×4 (05:28→22:35)
[2018-03-23 05:32] LABS: INR 1.16 (0.83-1.16)
[2018-03-23] MEDS: LORazepam 2 MG/ML INJ IVP PRN (06:08)
[2018-03-23] MEDS ORDERED: COSYNTROPIN 0.25 MG/2 ML SYRINGE IVP ONE (08:30)
[2018-03-23] MEDS: LIPASE 24,000/AMYLASE/PROTEASE (CREON) 1 CAP PO SCH ×3 (08:37→18:13)
[2018-03-23] MEDS: PREGABALIN 75 MG CAP PO SCH ×2 (08:38→21:04)
[2018-03-23] MEDS: glipiZIDE 10 MG TAB PO SCH ×2 (08:38→18:13)
--- NOTE | 2018-03-23 08:42 | HOSPPROG ---
Hospitalist Progress Note Assessment/Plan: #Somnolence: RN called stating persistent somnolence this afternoon. Hold opioids,, tizanidine. Check ABG to eval for CO2 retention #Hypotension: labile BPs. AM cortisol 1.5. H/H down, likely dilutional with IVFs , denies bleeding -Ty-stim labs not collected correctly this morning. Will have to repeat in morning #Uncontrolled DM: A1c 12%. Uptitrate Lantus as needed (home dose 35 units BID). Lowered here for hypoglycemia #Microcytic anemia: needs outpatient colonoscopy #E coli UTI: completed course of abx #Leukocytosis: resolved with abx #Nondisplaced ankle fracture: immobilized. Not compliant with [facility]B precautions; explained that she can cause more harm and fracture may not heal. -FU ortho 1 week for cast. CM trying to arrange for scooter #Chronic hypoxic resp failure: NOMAN #Fibromyalgia: home meds #Vertigo: meclizine #Hypovolemic hyponatremia: holding Lasix #h/o portal vein thrombosis: Coumadin #Chronic opiate dependence #Acute syncope: from acute illness, hypovolemia #Deconditioning: PT/OT: declined SNF. CM to provide any available services. #DVT ppx: coumadin #Disp: cont inpatient admission for PT/OT, PRN antiemetics Subjective: bearing weight on right foot, refusing some PT Objective: Vital Signs Temp Pulse Resp BP Pulse Ox 36.8 C 87 18 110/66 97 03/23/18 05:08 03/23/18 05:08 03/23/18 05:08 03/23/18 05:08 03/23/18 05:08 Laboratory Results 03/23/18 05:10 03/22/18 03/23/18 03/24/18 05:59 05:59 05:59 Intake Total 2840 1000 Output Total 2300 2150 Balance 540 -1150 PT 15.0 SEC (12.0-15.0) 03/23/18 05:10 INR 1.16 (0.83-1.16) 03/23/18 05:10 - Physical Exam Constitutional: other (agitated) Eyes: PERRL Ears, Nose, Mouth, Throat: moist mucous membranes Cardiovascular: regular rate and rhythym Respiratory: no respiratory distress Gastrointestinal: normoactive bowel sounds Genitourinary: no bladder fullness Musculoskeletal: other (right foot splinted) Neurologic: AAOx3 Psychiatric: interacting appropriately ICD10 Worksheet Patient Problems: Problems Problem Status Onset Ankle fracture Acute Dehydration Acute Hyperglycemia Acute UTI (urinary tract infection) Acute Acute gastroenteritis Acute Chronic back pain Acute Diarrhea Acute Hyperglycemia due to type 2 diabetes mellitus Acute Hyperglycemia without ketosis Acute Pain, dental Acute Subtherapeutic international normalized ratio (INR) Acute Abdominal pain Chronic Chronic pancreatitis Chronic
[2018-03-23] MEDS: INSULIN LISPRO 100 UNIT/ML SC SCH ×4 (08:43→21:18)
[2018-03-23] MEDS: INSULIN GLARGINE 100 UNITS/ML UNIT SC SCH ×2 (08:57→21:13)
[2018-03-23] MEDS: MECLIZINE HCL 25 MG TAB PO PRN (11:45)
[2018-03-23] MEDS: tiZANidine HCL 2 MG TAB PO SCH (15:04)
[2018-03-23] MEDS ORDERED: WARFARIN SODIUM 7.5 MG TAB PO ONE (16:00)
[2018-03-23] MEDS ORDERED: NS 500 ML IV SCH (18:30)
[2018-03-23] MEDS: FOLIC ACID 1 MG TAB PO SCH (21:04)
[2018-03-23] MEDS ORDERED: oxyCODONE IR 5 MG TAB PO PRN (21:25)
[2018-03-24] MEDS: PROMETHAZINE HCL 25 MG/ML INJ IVP PRN (03:50)
[2018-03-24] MEDS: ACETAMINOPHEN 325 MG TAB PO PRN (04:17)
[2018-03-24 04:51] LABS: INR 1.22 (0.83-1.16); PROTIME(PATIENT) 15.6 SEC (12.0-15.0)
[2018-03-24] MEDS ORDERED: COSYNTROPIN 0.25 MG/2 ML SYRINGE IVP ONE ×2 (06:00)
[2018-03-24] MEDS: PROMETHAZINE HCL 25 MG TAB PO PRN ×2 (09:10→13:18)
[2018-03-24] MEDS: LIPASE 24,000/AMYLASE/PROTEASE (CREON) 1 CAP PO SCH ×2 (09:11→11:49)
[2018-03-24] MEDS: glipiZIDE 10 MG TAB PO SCH (09:11)
[2018-03-24] MEDS: PREGABALIN 75 MG CAP PO SCH (09:12)
[2018-03-24] MEDS: INSULIN LISPRO 100 UNIT/ML SC SCH ×3 (09:12→13:15)
[2018-03-24] MEDS: INSULIN GLARGINE 100 UNITS/ML UNIT SC SCH (09:13)
--- NOTE | 2018-03-24 09:27 | PDIAF ---
- Diagnosis Diagnosis: UTI Code Status: Full Code - Medication Management Discharge Medications: Medications to Continue on Transfer Insulin Detemir [Levemir] 50 unit SQ DAILY 08/14/15 [Last Taken 03/17/18] Potassium Cl [Klor-Con 20 meq (*)] 40 meq PO BID 08/14/15 [Last Taken 03/18/18 09:00] tiZANidine HCL [Zanaflex 2MG (*)] 4 mg PO BID 08/14/15 [Last Taken 03/17/18] Albuterol [Proventil Inhaler HFA (*)] 1 - 2 puffs IH DAILY PRN 11/22/15 [Last Taken 03/01/17] Ergocalciferol [Vitamin D2 (*)] 50,000 unit PO ISBELL@0900 12/19/15 [Last Taken ] Insulin Detemir [Levemir] 35 - 50 unit SQ DAILY@18 02/15/16 [Last Taken 03/17/18 ] Promethazine HCl [Phenergan 25mg (*)] 25 mg PO Q4-6PRN PRN 02/15/16 [Last Taken 03/01/17] glipiZIDE [Glipizide] 10 mg PO BIDAC 04/01/16 [Last Taken 03/18/18 09:00] Furosemide [Lasix 40 MG (*)] 40 mg PO BID 04/06/16 [Last Taken 03/17/18 21:00] Lisinopril [Zestril 5 mg (*)] 5 mg PO HS #30 tab 04/07/16 [Last Taken 03/17/18] Lipase 24,000/Amylase/Protease [Creon 24 (*)] 2 cap PO TIDMEAL 03/19/18 [Last Taken 03/18/18 12:00] Pregabalin [Lyrica 150mg (*)] 150 mg PO BID 03/19/18 [Last Taken 03/18/18 21:00] Pregabalin [Lyrica 75mg (*)] 75 mg PO BID 03/19/18 [Last Taken 03/18/18 21:00] tiZANidine HCL [Zanaflex 2MG (*)] 2 mg PO DAILY14 03/19/18 [Last Taken 03/17/18] Folic Acid [Folic Acid 1 MG (*)] 1 mg PO HS tab 03/24/18 [Last Taken Unknown] Insulin Glargine [Lantus Syringe] 25 units SC BID unit 03/24/18 [Last Taken Unknown] Meclizine HCl [Meclizine HCl 25 mg (RX,OTC)] 25 mg PO BID PRN tab 03/24/18 [ Last Taken Unknown] Warfarin Sodium [Coumadin 5MG (*)] 7.5 mg PO HS #30 tab 03/24/18 [Last Taken Unknown] Discharge Medications: Refer to the Discharge Home Medication list for PRN reason. - Orders Services needed: Home Care, Registered Nurse, Certified Steward/Stewardess Tourist Class, Physical Therapy, Occupational Therapy Home Care Face to Face: I certify that this patient was under my care and that I had the required [id number] encounter meeting the encounter requirements on the discharge day. My findings support the fact that the patient is homebound as defined in Home Care Face to Face Continued: CMS Chapter 7 Medicare Benefits Manual 30.1.1 , The condition of the patient is such that there exists a normal inability to leave home and consequently, leaving home would require a considerable and taxing effort. Isolation Type: None Diet Recommendation: no restrictions on diet Diet Texture: Regular Texture Diet Additional Instructions: 1. Follow up with your primary doctor 03/26/18 for INR check (for coumadin dosing) 2. Follow up with orthopedic doctor - Follow Up Care Current Providers and Referrals: Patient,NotPresent [Unknown] - As per Instructions Jose Montaño MD [Medical Doctor] - follow up in 1 week (STAY NON-WEIGHT BEARING ON RT LOWER EXTREMITY. DURING [facility] FOLLOW UP YOU WILL BE TRANSITIONED TO EITHER A CAST OR A BOOT. SMOKING/TOBACCO USE IS A RISK FACTOR FOR NONUNION OR DELAYED UNION. RECOMMEND TO STOP SMOKING)
--- NOTE | 2018-03-24 10:48 | GDS ---
[f rep st] DISCHARGE SUMMARY DISCHARGE DIAGNOSES: 1. Hypotension. 2. Uncontrolled diabetes. 3. Microcytic anemia. 4. Escherichia coli urinary tract infection. 5. Leukocytosis. 6. Nondisplaced ankle fracture. 7. Chronic hypoxemic respiratory failure. 8. Fibromyalgia. 9. Vertigo. 10. Hypovolemic hyponatremia. 11. History of portal vein thrombosis. 12. Chronic opioid dependence. 13. Acute syncope. 14. Deconditioning. 15. Type 2 diabetes. 16. Obesity. 17. Chronic obstructive pulmonary disease. 18. Gastroparesis. 19. History of Meniere disease. HISTORY OF PRESENT ILLNESS: A 47-year-old female with type 2 diabetes, obesity , COPD, gastroparesis, and history of Meniere disease presented to ER with a syncopal episode at home. For 3 days prior, she had been having increased urinary frequency, urgency and some suprapubic pain. She woke up this morning to go to the bathroom, felt lightheaded, dizzy, and felt it that was related to her Meniere. She thinks she had a presyncopal episode. She recalls falling to the floor and hearing a crunch in her right ankle and immediate pain. HOSPITAL COURSE: 1. Syncope: due to hypovolemia with acute infection. Troponin and EKG were negative for ischemia. 2. Right ankle fracture: splinted and nonweightbearing, but has not been compliant with these instructions. Was offered a prescription for a scooter or wheelchair 3. Hypotension: labile BP. Random cortisol was low 1.5, but responded to stim testing. 4. Uncontrolled diabetes: A1c 12. Reports many lows at home. Decreased Levimer to 25 units BID 5. Microcytic anemia: outpatient colonoscopy. Denies bleeding here. 6. E coli UTI: s/p 3 days abx 7. Leukocytosis: Again, secondary to infection, resolved. 8. Chronic hypoxic respiratory failure, secondary to NOMAN and COPD: No evidence of exacerbation. 9. Fibromyalgia: Resumed home medications. 10. Vertigo/Meniere's: p.r.n. meclizine. 11. Hypovolemic hyponatremia: Held Lasix, improved with fluids. 12. History of portal vein thrombosis: Appears to not have been compliant with Coumadin since INR was subtherapeutic. Increased dose to 7.5 mg with an INR check on 03/26 with her PCP. 13. Deconditioning: She was offered a SNF, but declined. DISPOSITION: Patient is stable for discharge home with PT/OT/ASPHALT TILE FLOOR LAYER MEDICATIONS: Medication changes: Coumadin increased to 7.5 mg, Levimer 25 units BID FOLLOWUP: 1. Dr. Montaño with Orthopedics. 2. Primary PCP on 03/26/2018, for INR. PHYSICAL EXAMINATION: VITAL SIGNS: Today, temperature 36.8, blood pressure 106 /71, heart rate in the 80s, respiration 18, 96% on 2.5 L. GENERAL: Obese female, irritable, lying in bed. HEENT: PERRLA. Moist mucous membranes. CV: Regular rate and rhythm. LUNGS: Clear. ABDOMEN: Soft, nontender. : No [place]. MUSCULOSKELETAL: Right foot splinted. NEURO: 2 through 12. PSYCH: Alert and oriented x3. Poor insight. Agitated, very sean, short with her answers. Time spent on discharge greater than 30 minutes discussing medication changes with the patient and coordinating followup. /[id number]/MODL MTDD
[2018-03-24 11:22] VITALS: BP 112/58
[2018-03-24] MEDS: tiZANidine HCL 2 MG TAB PO SCH (13:15)
--- NOTE | 2018-03-24 14:37 | ASMTLACE ---
TAO Length of stay for Answers: 4-6 days current admission Comorbidities - select Answers: Chronic pulmonary disease all that apply Diabetes (uncontrolled or controlled) Opioid dependence / Chronic pain Other Notes: Meniere's disease # of Emergency department Answers: 1-2 visits in the last 6 months Social determinants Answers: Lack of community resources and/or lack of social support (no pcp, lives alone, transportation, michael d) Score: 17 Date Signed: 03/24/2018 02:35 PM Electronically Signed By:Dayana Dennis LCSW
--- NOTE | 2018-03-24 14:42 | ASMTDCNOTE ---
Case Management Discharge Discharge Order Complete? Answers: Yes Patient to Obtain Answers: Independently Medications Transportation Arranged Answers: Other Notes: [place] [facility] will Pick (Date 03/24/2018 01:30 PM & Time) Faxed Final Orders Answers: Yes Notes: [facility] Agency/Facility Transfer Answers: Yes Report Printed & Faxed to Receiving Agency Discharge Comments Notes: Patient was discharged today. Was suppose to be non wt bearing on her ankle. Patient needed a script for a scooter and bathroom equipment. Gave her Equipment list. Needed transport home-[place] lined up. Had her O2 tank here for transport. Needed her PCP for HC-determined. Patient has no family or friend support. [facility] to follow. Date Signed: 03/24/2018 02:40 PM Electronically Signed By:Dayana Dennis LCSW
--- NOTE | 2018-03-24 14:43 | ASDISCHSUM ---
Discharge Information Plan Status:Home with Home Health Medically Cleared to Leave:03/24/2018 Discharge Date:03/24/2018 01:30 PM CM D/C Disposition:Home Health Service ADT D/C Disposition:Home, Routine, Self-Care Projected Discharge Date:03/24/2018 02:00 PM Transportation at D/C:Medicaid Transportation Discharge Delay Reason: Follow-Up Date:03/24/2018 02:00 PM Discharge Slot:2 - 12:01 pm - 18:00 pm Final Diagnosis:Ankle fx, UTI Placement Information Referral Type:*Home Health Care Services Referral ID:[id number] Provider Name:[facility] [address] [facility] [facility] [address] 2: City:[place] Selection Factors: State:[place] Patient Contact Information Contact Name:DANIEL Relationship:Sister Address: Work Phone: City: [facility] Phone: [facility]/Zip Code: Email: Financial Information Financial Class:Medicaid Primary Plan Desc:[facility] Primary Plan Number:[id number] Secondary Plan Desc: Secondary Plan Number: Assessment Information LACE LACE Length of stay for Answers: 4-6 days current admission Comorbidities - select Answers: Chronic pulmonary disease all that apply Diabetes (uncontrolled or controlled) Opioid dependence / Chronic pain Other Notes: Meniere's disease # of Emergency department Answers: 1-2 visits in the last 6 months Social determinants Answers: Lack of community resources and/or lack of social support (no pcp, lives alone, transportation, michael d) Score: 17 Date Signed: 03/24/2018 02:35 PM Electronically Signed By:Dayana Dennis LCSW [facility] CM Progress Note CM Note CM Note Notes: Patient with multiple medical problems (including chronic opiate use and poorly controlled DMII) admitted following a pre-syncopal episode and subsequent minimally displaced medial malleolar fracture. I spoke with her about her living situation - she lives alone and has an elevator up to her apartment. She is normally independent. PT/OT ordered, as well as an ortho consult. Patient sees providers at [facility] for primary and mental health care. Case Managment will follow for d/c planning. Date Signed: 03/19/2018 10:15 AM Electronically Signed By:Colleen Kang RN [facility] CM Progress Note CM Note CM Note Notes: Pt agreed to 30-day stay in [facility] Medicaid bed today but [employer] stated that pt would have to relinquish her $730 monthly check from [employer] and would only be allowed to keep $50 for the time she is at SNF. Pt declined b/c she would not be able to pay her rent or bills. Pt did agree to HC RN/PT/OT/PASSENGER CONDUCTOR at [place]. [facility] will provide. [facility] submitted for pt to get [employer] which will provide 20-25 hrs/week of unskilled help in the home. Pt awar that it may take 30 days to be approved. Pt will also be signed up for meals on wheels. She was also given info on home delivery of groceries. Pt given loan closet list for bedside commode. DC unclear. CM to follow. Date Signed: 03/20/2018 04:29 PM Electronically Signed By:Rosalie Herrera LCSW [facility] CM Progress Note CM Note CM Note Notes: Pt may be ready for DC tomorrow. The [facility] pharamacy could get pt a scooter for $100 for four weeks. Pt is asking friends for help paying for it, She would need a script. PT also proposing that pt get a wheelchair from a loan closet and use it with one foot. CM to follow. Plan: [facility] with RN, PT, OT and PASSENGER CONDUCTOR. Date Signed: 03/22/2018 03:13 PM Electronically Signed By:Rosalie Herrera LCSW Case Management Discharge Plan Note Case Management Discharge Discharge Order Complete? Answers: Yes Patient to Obtain Answers: Independently Medications Transportation Arranged Answers: Other Notes: [place] [facility] will Pick (Date 03/24/2018 01:30 PM & Time) Faxed Final Orders Answers: Yes Notes: [facility] Agency/Facility Transfer Answers: Yes Report Printed & Faxed to Receiving Agency Discharge Comments Notes: Patient was discharged today. Was suppose to be non wt bearing on her ankle. Patient needed a script for a scooter and bathroom equipment. Gave her Equipment list. Needed transport home-[place] lined up. Had her O2 tank here for transport. Needed her PCP for HC-determined. Patient has no family or friend support. [facility] to follow. Date Signed: 03/24/2018 02:40 PM Electronically Signed By:Dayana Dennis LCSW Intervention Information
== END 2018-03-24 13:30 | disposition home health service (06) | DRG 463 ==
LOC: EDUNIT# → F1N 04:35 → OBSVTOIN 03-20 16:37
PROVIDERS: ADMIT Family Medicine; ATTEND Internal Medicine
DX: N39.0 Urinary tract infection, site not specified (principal); S82.54XA Nondisplaced fracture of medial malleolus of right tibia, initial encounter for closed fracture; E11.65 Type 2 diabetes mellitus with hyperglycemia; E11.40 Type 2 diabetes mellitus with diabetic neuropathy, unspecified; E11.43 Type 2 diabetes mellitus with diabetic autonomic (poly)neuropathy; J96.11 Chronic respiratory failure with hypoxia; F11.20 Opioid dependence, uncomplicated; R55 Syncope and collapse; J44.9 Chronic obstructive pulmonary disease, unspecified; D50.9 Iron deficiency anemia, unspecified; H81.09 Meniere's disease, unspecified ear; E87.1 Hypo-osmolality and hyponatremia; E86.0 Dehydration; M79.7 Fibromyalgia; M06.9 Rheumatoid arthritis, unspecified; E66.9 Obesity, unspecified; I10 Essential (primary) hypertension; Z99.81 Dependence on supplemental oxygen; Z79.4 Long term (current) use of insulin; Z86.711 Personal history of pulmonary embolism; Z86.718 Personal history of other venous thrombosis and embolism
CPT/HCPCS: 84484-PO; 92507-GN; 92523-GN; 97116-GP; 97161-GP; 97166-GO; 97530-GP; 97535-GO; G0378; J0834; J1815; J1956; J2060; J2270; J2405; J2550

== ENCOUNTER → 2018-04-15 | Outpatient (CLI) | payer MEDICAID | LOC: BMCIMAGING 11:30 | PROVIDERS: ATTEND Orthopaedic Surgery Hand Surgery | DX: S82.54XD Nondisplaced fracture of medial malleolus of right tibia, subsequent encounter for closed fracture with routine healing (principal) ==

== ENCOUNTER → 2018-05-05 | Outpatient (CLI) | payer MEDICAID | LOC: BMCIMAGING 11:13 | PROVIDERS: ATTEND Orthopaedic Surgery Hand Surgery | DX: S82.51XD Displaced fracture of medial malleolus of right tibia, subsequent encounter for closed fracture with routine healing (principal) ==

== ENCOUNTER 2018-06-10 07:43 | Emergency (ER) | payer MEDICAID ==
--- NOTE | 2018-06-10 08:05 | EDPHY ---
H & P Stated Complaint: L ear pain Time Seen by Provider: 06/10/18 08:00 - Personal History LMP (Females 10-55): 1-7 Days Ago Current Tetanus/Diphtheria Vaccine: Yes Current Tetanus Diphtheria and Acellular Pertussis (TDAP): Yes Tetanus Vaccine Date: 2007 - Medical/Surgical History Hx Asthma: Yes Hx Chronic Respiratory Disease: Yes Hx Diabetes: Yes Hx Cardiac Disease: No Hx Renal Disease: No Hx Cirrhosis: No Hx Alcoholism: No Hx HIV/AIDS: No Hx Splenectomy or Spleen Trauma: Yes Other PMH: Portal vein thrombosis, diabetes, asthma, COPD, Splenectomy, appy, cholecystectomy,c section, DVTs, PEs,DM, "bladder, uterus, rectum lifted", fibromyalgia, rheumatoid arthritis - Social History Smoking Status: Current every day smoker Constitutional: Initial Vital Signs Temperature (C) 36.7 C 06/10/18 07:47 Heart Rate 110 H 06/10/18 07:47 Respiratory Rate 16 06/10/18 07:47 Blood Pressure 133/84 H 06/10/18 07:47 O2 Sat (%) 88 L 06/10/18 07:47 O2 Delivery Mode Room Air Allergies/Adverse Reactions: azithromycin Allergy (Unknown, Unverified 06/10/18 07:46) Vomiting NSAIDS (Non-Steroidal Anti-Inflamma [NSAIDS (Non-Steroidal Anti-Inflammatory Drug)] Allergy (Unknown, Unverified 06/10/18 07:46) Swelling/neck,face,throat aspirin Allergy (Verified 06/10/18 07:46) Swelling/neck,face,throat cephalexin monohydrate [From Keflex] Allergy (Verified 06/10/18 07:46) Swelling/neck,face,throat clindamycin Allergy (Verified 06/10/18 07:46) Swelling/neck,face,throat metformin Allergy (Verified 06/10/18 07:46) Other-Enter Comments Penicillins Allergy (Verified 06/10/18 07:46) Rash cephalexin monohydrate Allergy (Unknown, Uncoded 06/10/18 07:46) Swelling/neck,face,throat all cillins Allergy (Uncoded 06/10/18 07:46) Rash MONOHYDRATE Allergy (Uncoded 06/10/18 07:46) Home Medications: Medication Instructions Recorded Potassium Cl [Klor-Con 20 meq (*)] 40 meq PO BID 08/14/15 tiZANidine HCL [Zanaflex 2MG (*)] 4 mg PO BID 08/14/15 Albuterol [Proventil Inhaler HFA 1 - 2 puffs IH DAILY PRN 11/22/15 (*)] Ergocalciferol [Vitamin D2 (*)] 50,000 unit PO ISBELL@0900 12/19/15 Promethazine HCl [Phenergan 25mg 25 mg PO Q4-6PRN PRN 02/15/16 (*)] glipiZIDE [Glipizide] 10 mg PO BIDAC 04/01/16 Furosemide [Lasix 40 MG (*)] 40 mg PO BID 04/06/16 Lisinopril [Zestril 5 mg (*)] 5 mg PO HS #30 tab 04/07/16 Lipase 24,000/Amylase/Protease 2 cap PO TIDMEAL 03/19/18 [Creon 24 (*)] Pregabalin [Lyrica 150mg (*)] 150 mg PO BID 03/19/18 Pregabalin [Lyrica 75mg (*)] 75 mg PO BID 03/19/18 tiZANidine HCL [Zanaflex 2MG (*)] 2 mg PO DAILY14 03/19/18 Folic Acid [Folic Acid 1 MG (*)] 1 mg PO HS tab 03/24/18 Insulin Detemir [Levemir] 25 unit SQ BID #0 03/24/18 Meclizine HCl [Meclizine HCl 25 mg 25 mg PO BID PRN tab 03/24/18 (RX,OTC)] Warfarin Sodium [Coumadin 5MG (*)] 7.5 mg PO HS #30 tab 03/24/18 Neomy Sulf/Polymyx B Sulf/Hc 4 drops OT TID #1 otic.btl 06/10/18 [Cortisporin Otic Suspension] Medical Decision Making ED Course/Re-evaluation: CHIEF COMPLAINT: Left ear pain and can't hear HISTORY OF PRESENT ILLNESS: 47-year-old homeless woman who uses earplugs at night. She has been trying to put peroxide in her left ear because been bothering her for about a week. She can't hear out very well either. She denies fevers or chills. She denies any jaw pain or swollen lymph nodes. She denies any trouble with the right ear. REVIEW OF SYSTEMS: A comprehensive 10 system review of systems is otherwise negative aside from elements mentioned in the history of present illness and medical decision making. PHYSICAL EXAM: HR, BP, O2 Sat, RR. Temp noted General Appearance: Alert, well hydrated, appropriate, and non-toxic appearing. Head: Atraumatic without scalp tenderness or obvious injury Eyes: Pupils equal, round, reactive to light and accommodation, EOMI, no trauma , no injection. Ears: Left ear has some irritation in the external auditory canal but no laceration. It is also plugged with cerumen. Once the cerumen is removed the drum itself looks normal. She does have some additional erythema and irritation in the external canal probably from her ear plugs and her trying to get the wax out herself. Right ear with a small amount a wax otherwise normal Nose: Atraumatic, no rhinorrhea, clear. Throat: There is no erythema or exudates, no lesions, normal tonsils, mucus membranes moist. Neck: Supple, 2+ carotid upstroke, nontender, no lymphadenopathy. Respiratory: No retractions, no distress, no wheezes, and no accessory muscle use. Lungs are clear to auscultation bilaterally. Cardiovascular: Regular rate and rhythm, no murmurs, rubs, or gallops. Bilateral carotid, radial, dorsalis pedis, and posterior tibial pulses intact. Good capillary refill all extremities. Gastrointestinal: Abdomen is soft, nontender, non-distended, no masses, no rebound, no guarding, no peritoneal signs. Musculoskeletal: Normal active ROM of all extremities, atraumatic. Neurological: Alert, appropriate, and interactive. The patient has normal DTRs and non-focal cranial nerves, motor, sensory, and cerebellar exam. Skin: No rashes, good turgor, no nodules on palpation. Past medical history: Noncontributory Past surgical history: Noncontributory Family history: Noncontributory Social history: Single, not employed, homeless, denies abuse of tobacco drugs or alcohol DIAGNOSTICS/PROCEDURES/CRITICAL CARE TIME: None indicated DIFFERENTIAL DIAGNOSIS: For hearing loss and ear pain includes but is not limited to: Otitis media, otitis externa, cerumen impaction, tympanic membrane perforation MEDICAL DECISION MAKING: This patient has a mild otitis externa no evidence of tympanic membrane problem or otitis media. She also had a cerumen impaction which is removed with irrigation. I will start her on Cortisporin otic suspension and she will follow up with the clinic. Departure - Departure Disposition: Home, Routine, Self-Care Clinical Impression: Impacted cerumen of left ear Otitis externa Qualifiers: Otitis externa type: unspecified type Chronicity: acute Laterality: left Qualified Code(s): H60.502 - Unspecified acute noninfective otitis externa, left ear Condition: Good Instructions: Otitis Externa (ED), Cerumen Impaction (ED) Referrals: Keerthi Erazo [employer] [Primary Care Provider] - As per Instructions Prescriptions: Neomy Sulf/Polymyx B Sulf/Hc [Cortisporin Otic Suspension] 4 drops OT TID #1 otic.btl
[2018-06-10] MEDS ORDERED: CARBAMIDE PEROXIDE 15 ML OTIC.BTL EACHEAR ONE (09:00)
[2018-06-10 09:27] VITALS: BP 144/80
== END 2018-06-10 09:29 | disposition home or self-care (01) ==
PROC: 3E1B78Z Irrigation of Ear using Irrigating Substance, Via Natural or Artificial Opening (ICD-10-PCS; principal; 2018-06-10)
DX: H60.502 Unspecified acute noninfective otitis externa, left ear (principal); H61.22 Impacted cerumen, left ear; E11.9 Type 2 diabetes mellitus without complications; Z79.4 Long term (current) use of insulin; Z59.0 Homelessness

== ENCOUNTER 2019-02-04 17:27 | Emergency (ER) | payer MEDICAID | END 2019-02-04 21:13 | disposition home or self-care (01) ==